=== PATIENT | male | born 1935 | race African-American/Black ===

== ENCOUNTER 2016-10-08 11:36 | Inpatient (IN) ==
[~2016-10-08 11:36] MED LIST: ASPIRIN PO STA
[2016-10-08 12:24] LABS: INR 0.88; PROTIME 9.2 Seconds (9.2-11.7); PTT 24.9 Seconds (22.0-36.0)
[2016-10-08 12:37] LABS: ALLEN TEST YES; BE 6.4 mmoll (-3.0-3.0); BLOOD TYPE ARTERIAL; DRAW SITE L RADIAL; O2(CT) 11.4 mL/dL (15.0-23.0); PO2(98.6) 150 mmHg (60-100); SAMPLE BLOOD; SAO2 98.8 % (95.0-100.0); THB 8.2 g/dL (11.5-17.4)
[2016-10-08 12:37] LABS: BASO% 0.2 % (0.0-0.8); EOS# 0.17 X1000 (0.0-0.7); HEMOGLOBIN 8.1 g/dL (14.0-18.0); IMM GRAN# 0.08 X1000 (0.0-0.04); IMM GRAN% 0.9 % (0.0-0.5); LYMPH# 1.52 X1000 (1.2-3.4); LYMPH% 17.7 % (20.5-51.1); MANUAL DIFF NEEDED? NO; MCH 28.5 PG (27-31); MCHC 28.9 g/dL (33-37); MCV 98.6 FL (81-99); MONO% 12.8 % (1.7-9.3); MPV 9.9 FL (7.4-10.4); NEUT% 66.4 % (42.2-75.2); PLT 181 X1000 (130-400); RBC 2.84 XMIL (4.7-6.1)
[2016-10-08 12:39] LABS: MODALITY CANNULA; pH(98.6) 7.13 (7.35-7.45)
[2016-10-08 12:40] LABS: PCO2(98.6) 112 mmHg (35-45)
[2016-10-08 12:46] LABS: AGAP 7; ALBUMIN 3.2 g/dL (3.5-5.0); ALKALINE PHOSPHATASE 57 U/L (32-122); BUN 50 mg/dL (8-22); CALCIUM 9.1 mg/dL (8.8-10.2); CHLORIDE 96 mmol/L (98-107); CK PROFILE 46 U/L (24-204); COSMO 288; DIRECT BILIRUBIN < 0.20 mg/dL (0.00-0.20); GOT 12 U/L (10-34); GPT 10 U/L (10-44); MAGNESIUM 2.1 mg/dL (1.5-2.7); POTASSIUM 5.4 mmol/L (3.5-5.1); SODIUM 136 mmol/L (136-145); TCO2 33 mmol/L (25-35); TOTAL BILIRUBIN 0.15 mg/dL (0.20-1.00); TOTAL PROTEIN 5.5 g/dL (6.3-8.3)
--- NOTE | 2016-10-08 12:56 | EKG Report ---
Test Performed on : 10/08/2016 11:49:15 AM Test Reason : Chest Pain Blood Pressure : / mmHG Vent. Rate : 082 BPM Atrial Rate : 082 BPM P-R Int : 140 ms QRS Dur : 086 ms QT Int : 356 ms P-R-T Axes : 146 004 -27 degrees QTc Int : 415 ms Unusual P axis, possible ectopic atrial rhythm. Indeterminate axis Possible Anterior infarct (cited on or before 29-SEP-2016) Abnormal ECG When compared with ECG of 29-SEP-2016 10:54, Ectopic atrial rhythm. has replaced Sinus rhythm. Unconfirmed Result
--- NOTE | 2016-10-08 13:05 | PROVIDER DOCUMENTATION ---
HPI-Respiratory General - General Chief Complaint: Altered Mental Status Stated Complaint: hypotension Time Seen by Provider: 10/08/16 11:45 Source: RN/, EMS Allergies/Adverse Reactions: Patient Allergies Allergy/AdvReac Type Severity Reaction Status Date / Time No Known Allergies Allergy Verified 09/29/16 11:24 Home Medications: Home Medication List Medication Instructions Recorded Confirmed Last Taken Type Aripiprazole [Abilify] 2 mg PO QHS #0 tablet 09/06/15 10/08/16 10/07/16 Rx Ascorbate Calcium [Vitamin C] 500 tab PO BID 04/13/16 10/08/16 10/07/16 History Albuterol 2.5MG/Ipratrop 0.5MG 3 ml INH RTTID #0 neb 10/06/16 10/08/16 10/07/16 Rx [Duoneb (A & A)] Amlodipine [Norvasc] 5 mg PO BID #60 tablet 10/06/16 10/08/16 10/07/16 Rx Aripiprazole [Abilify] 1 mg PO QHS #0 tablet 10/06/16 10/08/16 10/07/16 Rx Carvedilol [Coreg] 6.25 mg PO Q12HR #60 tablet 10/06/16 10/08/16 10/07/16 Rx Duloxetine [Cymbalta] 30 mg PO DAILY #0 capsule 10/06/16 10/08/16 10/07/16 Rx Ferrous Sulfate 325 mg PO BID #0 tablet 10/06/16 10/08/16 10/07/16 Rx Isosorbide Mononitrate E.r. [Imdur] 60 mg PO DAILY #30 tablet 10/06/16 10/08/16 10/07/16 Rx LISINOpril/HCTZ [Prinzide 1 each PO DAILY #0 tablet 10/06/16 10/08/16 10/07/16 Rx 20/12.5MG] Pantoprazole [Protonix] 40 mg PO DAILY@0700 #0 tablet 10/06/16 10/08/16 Rx Sucralfate [Carafate] 1 gm PO 4XDAY #0 tablet 10/06/16 10/08/16 10/07/16 Rx Trazodone [Desyrel] 150 mg PO HS PRN PRN #0 tablet 10/06/16 10/08/16 10/07/16 Rx - History of Present Illness-Resp Nature of Presenting Problem: 81 y/o M who was recently discharged from the hospital, return to ED via EMS after he was found obtunded at home. He was in severe respiratory distress and barely responsive to verbal stimulus. He is known to have a strong hx of COPD with home oxygen. Quality of Pain: reports: pressure Severity in ED: reports: severe Onset/Duration: reports: just prior to arrival Timing: reports: still present, getting worse Context: reports: other (COPD) Cough Quality/Degree: reports: moderate Episode Frequency: chronic episodes Review of Systems - Adult - REVIEW OF SYSTEMS - ADULT ROS:: ROS per family Constitutional: reports: fatique Eyes: reports: no symptoms reported Ears, Nose, Mouth & Throat: reports: no symptoms reported Cardiovascular: reports: edema, orthopnea Respiratory: reports: chronic cough, dyspnea on exertion, shortness of breath. denies: hemoptysis Gastrointestinal: reports: no symptoms reported Genitourinary: reports: no symptoms reported Musculoskeletal: reports: no symptoms reported Neurological: reports: no symptoms reported Psychiatric: reports: no symptoms reported Past History - Adult - PAST MEDICAL HISTORY-ADULT Review of Records: reports: Nursing Assessment Review, Medications Reviewed Cardiovascular: reports: CHF, HTN, hyperlipidemia Respiratory: reports: asthma, COPD, other (lung problems) Musculoskeletal: reports: arthritis Psychiatric: reports: depression, schizophrenia Endocrine/Immune: reports: Diabetes - PRIOR SURGERIES/PROCEDURES Surgical/Procedure History: reports: cholecystectomy, other (perforated gastric ulcer surgical repair this past July) - PRIOR HOSPITALIZATIONS Prior Hospitalizations: reports: for similar symptoms - IMMUNIZATION STATUS Childhood Immunizations: See Nurse Assessment Flu Vaccine: See Nurse Assessment Physical Exam-General - PHYSICAL EXAM-ADULT Initial Vital Signs Reviewed: Yes - CONSTITUTIONAL General Appearance: severe distress, obese, obtunded - EYES Eyes: PERRL/EOMI - HEAD, EARS, NOSE, MOUTH & THROAT HENMT: normocephalic/atraumatic - NECK Neck: supple - RESPIRATORY Respiratory: decreased breath sounds, accessory muscle use, rales, rhonchi, prolonged expiration - CARDIOVASCULAR Cardiovascular: tachycardia - GASTROINTESTINAL (ABDOMEN) Abdominal Exam: normal bowel sounds, soft - MUSCULOSKELETAL Extremity: no pedal edema, no calf tenderness Peripheral Pulses: dorsalis-pedis (R): 1+, dorsalis-pedis (L): 1+ DTR: knee (R): 2+, knee (L): 2+ - NEUROLOGIC Neurologic: other ( can't assess) - PSYCHIATRIC Psych/Mental Status: disoriented x 3 Progress - PLAN OF CARE/RESULTS Progress/Plan/Lab Results: Vital Signs - 24 hr 10/08/16 10/08/16 12:05 12:06 Temperature 97.3 F L Pulse Rate 82 80 Respiratory 22 21 Rate Blood Pressure 102/43 102/43 O2 Sat by Pulse 100 100 Oximetry Laboratory Tests 10/08/16 10/08/16 10/08/16 11:56 11:56 11:56 WBC 8.61 RBC 2.84 L Hgb 8.1 L Hct 28.0 L MCV 98.6 MCH 28.5 MCHC 28.9 L RDW Std Deviation 13.4 Plt Count 181 MPV 9.9 Immature Gran % (Auto) 0.9 H Neut % (Auto) 66.4 Lymph % (Auto) 17.7 L Phillips % (Auto) 12.8 H Eos % (Auto) 2.0 Baso % (Auto) 0.2 Immature Gran # (Auto) 0.08 H Neut # (Auto) 5.72 Lymph # (Auto) 1.52 Phillips # (Auto) 1.10 H Eos # (Auto) 0.17 Baso # (Auto) 0.02 PT INR PTT (Actin FS) D-Dimer 3.92 H Specimen Type Sample Site pH pCO2 pO2 HCO3 Base Excess Oxyhemoglobin ABG O2 Sat (Calculated) ABG O2 Saturation ABG Carboxyhemoglobin ABG Methemoglobin Garry Test A-a O2 Difference Total Hemoglobin Lactate Liter Flow Blood Gas Modality FiO2 % Sodium 136 Potassium 5.4 H Chloride 96 L Carbon Dioxide 33 Anion Gap 7 BUN 50 H Creatinine 5.8 H Estimated GFR/1.73 m2 11 BUN/Creatinine Ratio 9 Glucose 151 H Calculated Osmolality 288 Calcium 9.1 Magnesium 2.1 Total Bilirubin 0.15 L Direct Bilirubin < 0.20 AST 12 ALT 10 Alkaline Phosphatase 57 Creatine Kinase 46 Troponin T Mkx-C-Hniulkxsksl Pept Total Protein 5.5 L Albumin 3.2 L Globulin 2.3 Albumin/Globulin Ratio 1.4 Plasma Lactate 10/08/16 10/08/16 10/08/16 11:56 11:56 11:56 WBC RBC Hgb Hct MCV MCH MCHC RDW Std Deviation Plt Count MPV Immature Gran % (Auto) Neut % (Auto) Lymph % (Auto) Phillips % (Auto) Eos % (Auto) Baso % (Auto) Immature Gran # (Auto) Neut # (Auto) Lymph # (Auto) Phillips # (Auto) Eos # (Auto) Baso # (Auto) PT 9.2 INR 0.88 PTT (Actin FS) 24.9 D-Dimer Specimen Type Sample Site pH pCO2 pO2 HCO3 Base Excess Oxyhemoglobin ABG O2 Sat (Calculated) ABG O2 Saturation ABG Carboxyhemoglobin ABG Methemoglobin Garry Test A-a O2 Difference Total Hemoglobin Lactate Liter Flow Blood Gas Modality FiO2 % Sodium Potassium Chloride Carbon Dioxide Anion Gap BUN Creatinine Estimated GFR/1.73 m2 BUN/Creatinine Ratio Glucose Calculated Osmolality Calcium Magnesium Total Bilirubin Direct Bilirubin AST ALT Alkaline Phosphatase Creatine Kinase Troponin T 0.159 H Hbh-E-Ymokfbuovbm Pept 1136 H Total Protein Albumin Globulin Albumin/Globulin Ratio Plasma Lactate 10/08/16 10/08/16 11:56 12:28 WBC RBC Hgb Hct MCV MCH MCHC RDW Std Deviation Plt Count MPV Immature Gran % (Auto) Neut % (Auto) Lymph % (Auto) Phillips % (Auto) Eos % (Auto) Baso % (Auto) Immature Gran # (Auto) Neut # (Auto) Lymph # (Auto) Phillips # (Auto) Eos # (Auto) Baso # (Auto) PT INR PTT (Actin FS) D-Dimer Specimen Type ARTERIAL Sample Site L RADIAL pH 7.13 L* pCO2 112 H* pO2 150 H HCO3 29.9 H Base Excess 6.4 H Oxyhemoglobin 95.7 ABG O2 Sat (Calculated) 11.4 L ABG O2 Saturation 98.8 ABG Carboxyhemoglobin 1.10 ABG Methemoglobin 2.0 H Garry Test YES A-a O2 Difference -62.0 Total Hemoglobin 8.2 L Lactate 0.40 L Liter Flow 3.0 Blood Gas Modality CANNULA FiO2 % 32.0 Sodium Potassium Chloride Carbon Dioxide Anion Gap BUN Creatinine Estimated GFR/1.73 m2 BUN/Creatinine Ratio Glucose Calculated Osmolality Calcium Magnesium Total Bilirubin Direct Bilirubin AST ALT Alkaline Phosphatase Creatine Kinase Troponin T Ynp-O-Jtmdijuldfw Pept Total Protein Albumin Globulin Albumin/Globulin Ratio Plasma Lactate 0.4 L - REASSESSMENT Reassessment #1 Time Reassessed: 14:06 Status: improving Reassessment Comment: Patient responds well to BiPAP - More alert and communicative - XRAY 1 XRAY Study: Chest Impression: Abnormal XRAY Interpretation: CMG - Pericardial Effusion - CONSULTS/PCP/HOSPITALIST Notification #1 *Consult/PCP/Hospitalist*: Dr. Summers Time Discussed: 14:06 Reason/Comments: COPD exacerbation / Pericardial Effusion Consult Disposition: Admit Departure - Departure Time of Disposition Order: 14:05 DIAGNOSIS: Acute respiratory failure with hypoxia and hypercapnia, Hypotension, COPD with acute exacerbation, Acute on chronic renal failure, Respiratory acidosis Disposition: ADMITTED INPATIENT 09 Certified Medical Emergency: Emergent Condition: Critical Referrals: Juan Castañeda MD [Primary Care Provider] -
[2016-10-08] MEDS ORDERED: SOLU-MEDROL IV ONE (13:10)
[2016-10-08] MEDS ORDERED: LEVAQUIN 750 MG/D5W 150 ML IV ONE (13:10)
[2016-10-08] MEDS ORDERED: SOLU-MEDROL ONE (13:21)
--- NOTE | 2016-10-08 13:42 | Diag Imaging Result Document ---
PROCEDURE NAME: CHEST-PORTABLE - 10/08/2016 AP PORTABLE CHEST: TIME: 1230 hours FINDINGS: The cardiomediastinal silhouette is enlarged. Some of this may be due to a pericardial effusion, as it does appear considerably larger than on 09/29/2016. There may be a pleural effusion on the left. This has not changed in appearance since 09/29/2016. The right lung is better expanded than it was on the previous study and remains clear. IMPRESSION: Cardiomegaly +/- pericardial effusion. Left pleural effusion.
[2016-10-08 13:51] LABS: URINE SOURCE CATH
[2016-10-08 14:02] LABS: ALLEN TEST YES; BE 5.4 mmoll (-3.0-3.0); BLOOD TYPE ARTERIAL; DRAW SITE L RADIAL; METHB 1.7 % (0.0-1.5); O2(CT) 11.7 mL/dL (15.0-23.0); PO2(98.6) 61 mmHg (60-100); SAMPLE BLOOD; THB 8.9 g/dL (11.5-17.4)
[2016-10-08 14:06] LABS: MODALITY BI PAP; PCO2(98.6) 98 mmHg (35-45); pH(98.6) 7.17 (7.35-7.45)
[2016-10-08 14:28] LABS: BILIRUBIN URINE NEGATIVE (NEGATIVE); BLOOD URINE NEGATIVE (NEGATIVE); COLOR YELLOW; GLUCOSE URINE NEGATIVE (NEGATIVE); LEUKOCYTES URINE SMALL (NEGATIVE); NITRITE URINE NEGATIVE (NEGATIVE); PROTEIN URINE 50 mg/dL (NEGATIVE); TURBIDITY URINE TURBID (CLEAR); UROBILINOGEN URINE 2 mg/dL (NORMAL)
[2016-10-08 14:30] LABS: URINE MICRO REVIEW NEEDED? YES
[2016-10-08 14:37] LABS: UR AMPHETAMINES QUAL PRESUMPTIVE POSITIVE (NONE DETECT); UR BARBITUATES QUAL NONE DETECTED (NONE DETECT); UR BENZODIAZEPIN QUAL NONE DETECTED (NONE DETECT); UR CANNABINOIDS QUAL NONE DETECTED (NONE DETECT); UR COCAINE QUAL NONE DETECTED (NONE DETECT); UR METHADONE QUAL NONE DETECTED (NONE DETECT); UR OPIATES QUAL NONE DETECTED (NONE DETECT); UR OXYCODONE QUAL NONE DETECTED (NONE DETECT); UR PCP QUAL NONE DETECTED (NONE DETECT)
[2016-10-08 14:42] LABS: UR EPITHELIAL CELLS <10 /HPF (<10); URINE BACTERIA NEGATIVE /HPF; URINE RBC <10 /HPF (<10); URINE WBC <10 /HPF (<10)
[2016-10-08 15:29] LABS: URINE CASTS NONE SEEN; URINE CRYSTALS NONE SEEN; URINE SMALL ROUND CELLS NONE SEEN
[2016-10-08] MEDS ORDERED: LASIX IV ONE (16:05)
--- NOTE | 2016-10-08 16:57 | HISTORY AND PHYSICAL ---
CHIEF COMPLAINT: Generalized weakness and dyspnea. HISTORY OF PRESENT ILLNESS: Mr. Yoon is an 81-year-old, -[place] gentleman, who is a very poor historian and was brought into the emergency room today with a 1-day history of generalized weakness. According to patient's , the patient was not able to walk and was having some difficulty breathing because of which he was brought into the emergency room for further evaluation and care. The patient cannot give me a proper history and his is also a poor historian. PAST MEDICAL HISTORY: 1. Chronic obstructive pulmonary disease with recurrent pneumonia and recurrent hospital admissions. 2. Chronic diastolic congestive heart failure. 3. Hypertension. 4. Type 2 diabetes mellitus. 5. Chronic kidney disease. 6. Iron-deficiency anemia. 7. Peptic ulcer disease with history of GI bleeding in the past. 8. Psychosis. 9. Insomnia. SOCIAL HISTORY: The patient is and retired. He lives with his here in [place]. He denies having alcohol usage or any kind of street drugs. FAMILY HISTORY: There is family history of hypertension and heart disease. CURRENT HOME MEDICATIONS: 1. Albuterol and Atrovent nebulization treatments 3 times a day. 2. Amlodipine 5 mg twice daily. 3. Abilify 2 mg orally once daily at bedtime. 4. Vitamin C 500 mg orally twice daily. 5. Carvedilol 6.25 mg orally twice daily. 6. Duloxetine 30 mg orally once daily. 7. Ferrous sulfate 325 mg orally twice daily. 8. Imdur 60 mg orally once daily. 9. Lisinopril/hydrochlorothiazide 20 mg/12.5 mg orally once daily. 10. Pantoprazole 40 mg orally once daily in the morning. 11. Sucralfate 1 g orally 4 times a day. 12. Trazodone 150 mg orally once daily at bedtime as needed for insomnia. 13. Prednisone 20 mg orally twice daily. 14. Tradjenta 5 mg orally once daily in the morning. 15. Furosemide 40 mg orally once daily in the morning. 16. Potassium chloride 10 mEq orally once daily. REVIEW OF SYSTEMS: A full review of system could not be obtained since patient is a very poor historian. PHYSICAL EXAMINATION: VITAL SIGNS: Temperature 98 degrees, pulse 86 beats per minute, respiratory rate 20 per minute, blood pressure 118/50, pulse ox 95% on 25% oxygen. GENERAL: The patient is awake but seems to be somewhat disoriented. He also appears to be dyspneic but no other acute distress noted. HEENT: No acute abnormalities noted. NECK: Supple without any thyromegaly. LYMPHATICS: No lymphadenopathy noted in the neck region. CHEST: Chest wall is nontender. CARDIOVASCULAR: First and second heart sounds are audible without any murmurs or gallops. RESPIRATORY: Bilateral lung air entry is moderately decreased secondary to poor inspiratory effort. No rales or rhonchi present on auscultation. GASTROINTESTINAL: Abdomen appears to be somewhat distended but it is soft and nontender on palpation. Normal bowel sounds are present. MUSCULOSKELETAL: Range of motion in most of the joints somewhat limited secondary to osteoarthritis. NEUROLOGIC: No focal deficits are present. PSYCHIATRIC: The patient appears to be somewhat forgetful. GENITOURINARY: Deferred. INTEGUMENTARY: Skin is warm, dry, and without any rash. DIAGNOSTIC DATA: CBC shows hemoglobin of 8.1 and hematocrit 28.0. In comparison, his hemoglobin and hematocrit were 9.2 and 31.5 on 10/04/2016 when he was here at the hospital last week. Rest of the CBC is nondiagnostic. Chemistry shows potassium levels of 5.4, chloride 96, CO2 of 33. BUN 50, creatinine level of 5.8, and glucose level of 151. Albumin levels were found to be somewhat low at 3.2, and total proteins were found to be 5.5. Rest of the comprehensive metabolic panel is nondiagnostic. In comparison, his creatinine levels were 3.5 on 2016; that was only 2 days ago. D-dimer was found to be elevated at 3.92 and INR was within normal limits at 0.88. Magnesium levels are found to be normal at 2.1 and troponin levels were elevated at 0.159 and proBNP was also elevated at 1136. ABG obtained at the emergency room on 25 % oxygen while he was on BiPAP showed a pH of 7.17 and pCO2 of 98 and PO2 of 61. Urinalysis was nondiagnostic and the ECG obtained at the emergency room showed sinus rhythm at 82 beats per minute and poor R-wave progression. Chest x-ray showed cardiomegaly with left-sided pleural effusion. IMPRESSION: 1. Vbwig-rh-nfvdhxu respiratory failure. 2. Acute chronic obstructive pulmonary disease exacerbation. 3. Wtvdh-eo-csidtdz diastolic congestive heart failure. 4. Acute kidney awueyc-go-yjdkznm kidney disease. 5. Type 2 diabetes mellitus. 6. Anemia that appears to be multifactorial and chronic. 7. Hypertension. 8. History of peptic ulcer disease. 9. Elevated troponin. That appears to be related to his chronic kidney disease. 10. Elevated D-dimer. That appears to be nonspecific but need to rule out pulmonary thromboembolism. PLAN: The patient will be admitted to the Intensive Care Unit and will be continued on BiPAP for respiratory support. I am going to continue him on levofloxacin 500 mg IV q. 48 hours and also give him albuterol and Atrovent nebulization treatments every 4 hours. He will also receive Solu- Medrol 60 mg IV q. 8 hours, and I am going to obtain Pulmonary consultation to further assist us and taking care of his respiratory issues. Would also start him on furosemide 40 mg now and then 40 mg daily. I am going to monitor his electrolytes and obtain V/Q scan to rule out pulmonary thromboembolism. Would also obtain a venous Doppler ultrasound of lower extremities to rule out deep vein thrombosis. Would provide him VTE prophylaxis with enoxaparin 30 mg subcutaneously every 24 hours for now. He has acute kidney injury on chronic kidney disease and, therefore, we will obtain nephrology consultation with Dr. Morgan to assist us in taking care of this apparently sick person. He has diabetes, and I am going to start him on lispro insulin subcutaneously as per sliding scale and also get an anemia workup including B12/folate levels, along with iron profile and ferritin levels. Would also obtain stool for Hemoccult, and monitor his hemoglobin and hematocrit. I am going to continue most of his medicines except aripiprazole, lisinopril/ hydrochlorothiazide and trazodone along with linagliptin. He does not need an echocardiogram at this time since it was only recently done on 09/30/2016 that showed left ventricular ejection fraction estimated at 65% and mild left atrial enlargement. Grade 1 left ventricular diastolic dysfunction was also noted at that time. Further recommendations will be given as per outcome of these measures. A total of more than 45 minutes of critical care time was spent taking care of this patient today. cc: MD Juan Barrientos MD MTDD
[2016-10-08] MEDS: HUMALOG SUBQ SCH ×2 (17:52→20:47)
[2016-10-08] MEDS: LOVENOX SUBQ SCH (17:56)
[2016-10-08 18:15] LABS: URINE SOURCE CATH
[2016-10-08 18:19] LABS: BILIRUBIN URINE NEGATIVE (NEGATIVE); BLOOD URINE SMALL (NEGATIVE); COLOR YELLOW; GLUCOSE URINE NEGATIVE (NEGATIVE); LEUKOCYTES URINE TRACE (NEGATIVE); NITRITE URINE NEGATIVE (NEGATIVE); PROTEIN URINE 30 mg/dL (NEGATIVE); SP GRAVITY URINE 1.014; TURBIDITY URINE HAZY (CLEAR); UROBILINOGEN URINE NORMAL (NORMAL)
[2016-10-08] MEDS: CARAFATE PO SCH ×2 (18:20→20:47)
[2016-10-08 18:22] LABS: UR EPITHELIAL CELLS <10 /HPF (<10); URINE BACTERIA NEGATIVE /HPF; URINE CULTURE NEEDED? YES; URINE MICRO REVIEW NEEDED? YES; URINE RBC <10 /HPF (<10); URINE WBC <10 /HPF (<10)
--- NOTE | 2016-10-08 18:25 | Diag Imaging Result Document ---
PROCEDURE NAME: LUNG SCAN / VQ - 10/08/2016 VENTILATION/PERFUSION LUNG SCAN: FINDINGS: The patient was injected with 5.7 mCi of technetium-99m MAA for the perfusion portion of the study and 33.9 mCi of technetium-99m DTPA aerosol for the ventilation portion of the study. There is no evidence of ventilation perfusion mismatch. There is some inhomogeneity of the distribution of both the ventilation and perfusion tracer; however, this is worse on the ventilation scan than the perfusion scan. There are no absolute perfusion defects demonstrated. IMPRESSION: Low probability for pulmonary embolus.
[2016-10-08 18:34] LABS: CALCIUM 9.1 mg/dL (8.8-10.2)
[2016-10-08 18:34] LABS: URINE CASTS GRANULAR PRESENT
[2016-10-08] MEDS ORDERED: KAYEXALATE PO ONE (19:36)
[2016-10-08] MEDS: DUONEB (A & A) INH SCH ×2 (19:52→22:45)
--- NOTE | 2016-10-08 19:58 | CONSULTATION ---
DATE OF CONSULTATION: 10/08/2016 PULMONARY CONSULTATION REQUESTING PHYSICIAN: Reyes Cotton M.D. REASON FOR CONSULTATION: Respiratory failure. HISTORY OF PRESENT ILLNESS: Mr. [place] Yoon is an 81-year-old, white male with severe COPD and of FEV1 of less than 1 L, severe pulmonary hypertension, chronic hypoxemic respiratory failure, who is followed by this practitioner for the above problems along with a known 13 mm nodule in the right lower lobe which has slightly increased over time. The patient is not a good candidate for biopsy. The patient has had recurrent admissions to the hospital. He was recently discharged from the hospital 2 days ago with acute on chronic hypoxemic and hypercapnic respiratory failure, and acute renal insufficiency. The patient was brought back to the emergency room by EMS after patient was found unresponsive at home. Arterial blood gas in the emergency room revealed pH 7.13, pCO2 of 112, PO2 of 150. The patient also had evidence of acute decompensation in renal function with an elevation in his creatinine. The patient was placed on BiPAP. He is now in ICU. He is arousable and greets me when I enter the room. PAST MEDICAL HISTORY: 1. Severe COPD with chronic hypercapnic and hypoxemic respiratory failure. 2. Severe pulmonary hypertension with a PA pressure of approximately 80. 3. Diastolic heart failure. 4. Gastric ulcer perforation with significant GI bleed in July 2015. 5. Status post cholecystectomy. 6. Schizophrenia with several geriatric admissions. 7. Dyslipidemia. 8. Chronic renal insufficiency. SOCIAL HISTORY: He is . 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 Previous end of life discussions have been performed with her but she continues to want him to be a full code as of our last visit. He has prior tobacco use. FAMILY HISTORY: Positive for COPD and cirrhosis. REVIEW OF SYSTEMS: Notable for obtundation which has improved. He currently denies symptoms. PHYSICAL EXAMINATION: General: Reveals a obese black male, resting comfortably, in no distress. Vital Signs: BP 124/53, heart rate 94, respiration rate 27, oxygen saturation 94%. HEENT: Pupils are equal. Oropharynx evaluation is limited with endotracheal tube in place. Neck: Supple. Chest: Reveals markedly diminished breath sounds bilaterally. Cardiac Examination: Distant heart sounds with normal S1, normal S2. Abdomen: Soft without hepatosplenomegaly. Extremities: Without significant edema. LABORATORIES: White blood count 8.6, hemoglobin 8.1, platelet count 181,000. Chemistry: Sodium 137, potassium 6.0, chloride 95, BUN 53, creatinine 5.7. Arterial blood gas at 13:55 on BiPAP: pH 7.17, pCO2 of 98, PO2 of 61. IMPRESSION: An 81-year-old with end-stage COPD, severe pulmonary hypertension, who was discharged from the hospital 48 hours ago. The patient has evidence of acute on chronic hypoxemic respiratory failure and acute on chronic hypercapnic respiratory failure along with acute on chronic renal insufficiency. The patient's overall prognosis is poor. RECOMMENDATIONS: 1. Continue BiPAP until his CO2 improves. 2. Consider obtaining a BiPAP for home use if this can be arranged. 3. Gentle fluid resuscitation anticipated by Dr. Morgan. 4. Overall prognosis is poor. End of life discussions will be ongoing with his . cc: MD Juan Alas MD
[2016-10-08] MEDS: COREG PO SCH (20:47)
[2016-10-08] MEDS: VITAMIN C PO SCH (20:47)
[2016-10-08] MEDS: NORVASC PO SCH (20:47)
[2016-10-08] MEDS: FERROUS SULFATE PO SCH (20:47)
[2016-10-08] MEDS: SOLU-MEDROL IV SCH (20:48)
[2016-10-09] MEDS: DUONEB (A & A) INH SCH ×6 (02:45→22:48)
[2016-10-09] MEDS: SOLU-MEDROL IV SCH ×3 (05:00→20:50)
[2016-10-09] MEDS: PROTONIX PO SCH (06:24)
[2016-10-09] MEDS: CARAFATE PO SCH ×4 (07:00→20:50)
[2016-10-09] MEDS: HUMALOG SUBQ SCH ×4 (07:00→21:50)
[2016-10-09] MEDS: VITAMIN C PO SCH ×2 (08:33→20:50)
[2016-10-09] MEDS: LASIX IV SCH (08:33)
[2016-10-09] MEDS: NORVASC PO SCH ×2 (08:33→20:50)
[2016-10-09] MEDS: IMDUR PO SCH (08:33)
[2016-10-09] MEDS: FERROUS SULFATE PO SCH ×2 (08:33→20:50)
[2016-10-09] MEDS: COREG PO SCH ×2 (08:33→20:50)
[2016-10-09] MEDS: CYMBALTA PO SCH (08:33)
--- NOTE | 2016-10-09 14:28 | CONSULTATION ---
DATE OF CONSULTATION: 10/09/2016 REASON FOR CONSULTATION: Acute kidney injury overlying chronic kidney disease. HISTORY OF PRESENT ILLNESS: Mr. Yoon is an 81-year-old black man who has end-stage COPD. He is on hospice because of this. He also has diabetes, hypertension and chronic kidney disease. He was brought to the emergency room because of difficulty with breathing and hypercarbia. His initial evaluation found his kidney function worse than his historical baseline. He also had a pCO2 of 69 on admission. He was admitted to the hospital on this basis. This morning, he feels better. Shortness of breath is improved. He states he is hungry. PAST MEDICAL HISTORY: As above. HOME MEDICATIONS: Reviewed as listed. PHYSICAL EXAMINATION: Vital Signs: Blood pressure 157/79, heart rate 99, respirations 21, afebrile. Generally: He is an elderly man, lying at 30 degrees. Sleeping but easily arousable. Skin: Warm and dry. Conjunctivae are pink. Oropharynx is moist. Neck: Supple. Neck veins are not distended. Heart: Regular. Mildly tachycardic. Lungs: Have equal breath sounds. No crackles. Abdomen: Soft, nontender. Bowel sounds present. Extremities: Have minimal edema. No clubbing or cyanosis. IMPRESSION/PLAN: Acute kidney injury overlying chronic kidney disease. Good urine output. His labs are improving. Potassium is improved. Nothing to add. We will follow clinically. cc: MD Juan Dc MD
[2016-10-09] MEDS: LOVENOX SUBQ SCH (17:00)
[2016-10-09 17:03] LABS: MANUAL DIFF NEEDED? NO
[2016-10-09 18:01] LABS: ALLEN TEST YES; BE 8.9 mmoll (-3.0-3.0); BLOOD TYPE ARTERIAL; DRAW SITE R RADIAL; METHB 1.4 % (0.0-1.5); O2(CT) 12.3 mL/dL (15.0-23.0); PO2(98.6) 71 mmHg (60-100); SAMPLE BLOOD; SAO2 98.9 % (95.0-100.0); SRATE 10 BPM; THB 9.1 g/dL (11.5-17.4); pH(98.6) 7.33 (7.35-7.45)
[2016-10-09 18:04] LABS: MODALITY BI PAP; PCO2(98.6) 69 mmHg (35-45)
[2016-10-09 18:33] LABS: IRON SATURATION 23 %; TIBC 206 ug/dL
[2016-10-09 18:40] LABS: BASO% 0.2 % (0.0-0.8); HEMATOCRIT 27.7 % (42.0-52.0); HEMOGLOBIN 8.3 g/dL (14.0-18.0); IMM GRAN# 0.08 X1000 (0.0-0.04); IMM GRAN% 1.2 % (0.0-0.5); LYMPH# 0.86 X1000 (1.2-3.4); MCV 93.6 FL (81-99); MONO# 0.32 X1000 (0.11-0.59); MONO% 4.8 % (1.7-9.3); MPV 9.6 FL (7.4-10.4); NEUT% 80.8 % (42.2-75.2); PLT 186 X1000 (130-400); RBC 2.96 XMIL (4.7-6.1)
[2016-10-09 18:50] LABS: FERRITIN 177 ng/mL (30-400)
[2016-10-09 18:52] LABS: AGAP 12; BUN 55 mg/dL (8-22); CALCIUM 9.5 mg/dL (8.8-10.2); CHLORIDE 98 mmol/L (98-107); COSMO 301; MAGNESIUM 1.9 mg/dL (1.5-2.7); POTASSIUM 5.3 mmol/L (3.5-5.1); SODIUM 142 mmol/L (136-145); TCO2 32 mmol/L (25-35); TOTAL IRON 48 ug/dL (53-167); UNBOUND IRON 158 ug/dL (112-346)
--- NOTE | 2016-10-09 21:33 | EKG Report ---
Test Performed on : 10/08/2016 7:10:18 PM Test Reason : elevated potassium Blood Pressure : / mmHG Vent. Rate : 098 BPM Atrial Rate : 098 BPM P-R Int : 130 ms QRS Dur : 082 ms QT Int : 334 ms P-R-T Axes : 070 015 024 degrees QTc Int : 426 ms Normal sinus rhythm. Low voltage QRS Borderline ECG When compared with ECG of 08-OCT-2016 11:49, (Unconfirmed) Sinus rhythm. has replaced Ectopic atrial rhythm. Nonspecific T wave abnormality has replaced inverted T waves in Inferior leads Confirmed by Gibran Mrat MD ([id number]) on 10/10/2016 12:47:11 PM
[2016-10-09] MEDS: HALDOL IM PRN (22:00)
[2016-10-10] MEDS: DUONEB (A & A) INH SCH ×6 (03:18→22:44)
[2016-10-10] MEDS: HALDOL IM PRN (03:49)
[2016-10-10] MEDS: SOLU-MEDROL IV SCH ×3 (04:00→20:10)
[2016-10-10 04:36] LABS: ALLEN TEST YES; BLOOD TYPE ARTERIAL; DRAW SITE R RADIAL; METHB 1.2 % (0.0-1.5); O2(CT) 13.2 mL/dL (15.0-23.0); PO2(98.6) 93 mmHg (60-100); SAMPLE BLOOD; SAO2 98.8 % (95.0-100.0); THB 9.6 g/dL (11.5-17.4); pH(98.6) 7.34 (7.35-7.45)
[2016-10-10 04:37] LABS: MODALITY CANNULA; PCO2(98.6) 74 mmHg (35-45)
[2016-10-10 04:55] LABS: CALCIUM 9.6 mg/dL (8.8-10.2); POTASSIUM 5.2 mmol/L (3.5-5.1)
[2016-10-10 05:09] LABS: MANUAL DIFF NEEDED? NO
[2016-10-10 05:12] LABS: BASO% 0.1 % (0.0-0.8); HEMOGLOBIN 7.7 g/dL (14.0-18.0); IMM GRAN# 0.11 X1000 (0.0-0.04); IMM GRAN% 1.2 % (0.0-0.5); LYMPH% 8.8 % (20.5-51.1); MCH 28.3 PG (27-31); MCHC 30.8 g/dL (33-37); MCV 91.9 FL (81-99); MONO# 0.58 X1000 (0.11-0.59); MONO% 6.4 % (1.7-9.3); MPV 9.9 FL (7.4-10.4); NEUT% 83.5 % (42.2-75.2); PLT 191 X1000 (130-400); RBC 2.72 XMIL (4.7-6.1)
[2016-10-10] MEDS: CARAFATE PO SCH ×4 (06:02→20:10)
[2016-10-10] MEDS: PROTONIX PO SCH (06:02)
[2016-10-10] MEDS: HUMALOG SUBQ SCH ×4 (06:16→20:11)
[2016-10-10] MEDS: COREG PO SCH ×2 (08:59→20:10)
[2016-10-10] MEDS: VITAMIN C PO SCH ×2 (08:59→20:10)
[2016-10-10] MEDS: NORVASC PO SCH ×2 (08:59→20:10)
[2016-10-10] MEDS: LASIX IV SCH (08:59)
[2016-10-10] MEDS: FERROUS SULFATE PO SCH ×2 (08:59→20:10)
[2016-10-10] MEDS: IMDUR PO SCH (09:00)
[2016-10-10] MEDS: CYMBALTA PO SCH (09:01)
--- NOTE | 2016-10-10 09:06 | Diag Imaging Result Document ---
PROCEDURE NAME: CHEST-PORTABLE - 10/10/2016 PORTABLE CHEST: Compared with 10/08/2016. FINDINGS: There has been apparent decrease in atelectasis at the medial right base. If there was a pleural effusion present on the previous exam, then it appears to have decreased. There are no other acute changes identified. IMPRESSION: Decrease in atelectasis at medial right base. Decrease in left pleural effusion.
[2016-10-10] MEDS ORDERED: COREG PO SCH (09:49)
[2016-10-10] MEDS: LEVAQUIN 500 MG/D5W 100 ML IV SCH (13:57)
[2016-10-10] MEDS: CATAPRES PO PRN (15:30)
[2016-10-10] MEDS: LOVENOX SUBQ SCH (16:53)
[2016-10-11] MEDS: CATAPRES PO PRN (01:04)
[2016-10-11] MEDS: DUONEB (A & A) INH SCH ×6 (02:48→22:39)
[2016-10-11] MEDS: SOLU-MEDROL IV SCH ×3 (04:03→21:00)
[2016-10-11 04:19] LABS: ALLEN TEST YES; BE 12.7 mmoll (-3.0-3.0); BLOOD TYPE ARTERIAL; DRAW SITE R RADIAL; METHB 1.5 % (0.0-1.5); O2(CT) 14.7 mL/dL (15.0-23.0); PO2(98.6) 94 mmHg (60-100); SAMPLE BLOOD; SAO2 98.7 % (95.0-100.0); THB 10.8 g/dL (11.5-17.4); pH(98.6) 7.39 (7.35-7.45)
[2016-10-11 04:20] LABS: MODALITY BI PAP; PCO2(98.6) 66 mmHg (35-45)
[2016-10-11 05:59] LABS: MANUAL DIFF NEEDED? NO
[2016-10-11 06:01] LABS: BASO% 0.1 % (0.0-0.8); HEMATOCRIT 27.8 % (42.0-52.0); HEMOGLOBIN 8.8 g/dL (14.0-18.0); IMM GRAN# 0.13 X1000 (0.0-0.04); IMM GRAN% 1.5 % (0.0-0.5); LYMPH# 0.89 X1000 (1.2-3.4); MCH 28.4 PG (27-31); MCHC 31.7 g/dL (33-37); MCV 89.7 FL (81-99); MONO# 0.83 X1000 (0.11-0.59); MONO% 9.3 % (1.7-9.3); MPV 9.3 FL (7.4-10.4); NEUT% 79.1 % (42.2-75.2); PLT 230 X1000 (130-400)
[2016-10-11] MEDS: PROTONIX PO SCH (06:09)
[2016-10-11] MEDS: CARAFATE PO SCH ×4 (06:09→21:00)
[2016-10-11] MEDS: HUMALOG SUBQ SCH ×4 (06:09→21:01)
[2016-10-11 06:30] LABS: CALCIUM 9.5 mg/dL (8.8-10.2); POTASSIUM 5.1 mmol/L (3.5-5.1)
[2016-10-11] MEDS: VITAMIN C PO SCH ×2 (08:11→21:00)
[2016-10-11] MEDS: IMDUR PO SCH (08:11)
[2016-10-11] MEDS: CYMBALTA PO SCH (08:11)
[2016-10-11] MEDS: LASIX IV SCH (08:11)
[2016-10-11] MEDS: NORVASC PO SCH ×2 (08:11→21:00)
[2016-10-11] MEDS: FERROUS SULFATE PO SCH ×2 (08:11→21:00)
[2016-10-11] MEDS: COREG PO SCH ×2 (08:12→21:00)
--- NOTE | 2016-10-11 08:23 | PROGRESS NOTE ---
DATE: 10/11/2016 VITAL SIGNS: Temperature 98.9 degrees, heart rate 83, respirations 18, blood pressure 160/69, O2 saturation 100% on BiPAP with 35% FiO2. SUBJECTIVE: Patient has improved in ICU since admission on Tuesday. He is able to eat solid foods. LABORATORY DATA: Hemoglobin 8.8, hematocrit 27.8, white blood count 8900, with 79% neutrophils. Sodium 138, potassium 5.1, BUN 63, creatinine 3.7, glucose 179. PLAN: Transfer to the floor. Continue BiPAP at bedtime and p.r.n. Blood gases had improved with a PO2 of 94, pCO2 66, pH 7.39 on BiPAP. Initial pCO2 was 112 and PO2 150 on 3 L nasal oxygen. BUN and creatinine have remained about the same with initial being 56 and 3.9 respectively. cc: Juan Castañeda MD
--- NOTE | 2016-10-11 09:14 | PROGRESS NOTE ---
DATE: 10/11/2016 SUBJECTIVE: Mr. Yoon states he is feeling better today. Shortness of breath is improved. No other new symptoms.Vital signs: Blood pressure 147/73, heart rate 86, respirations 20, afebrile. Intake 1.3 L. Output 2.3 L. PHYSICAL EXAMINATION: No acute distress. Skin is warm and dry. Conjunctivae are pink. Pupils are equal. Neck veins are not distended. Heart is Regular. Lungs have equal breath sounds. No crackles. Abdomen soft, nontender. Bowel sounds present. Extremities have no edema, clubbing, or cyanosis. LABORATORY DATA: Sodium 138, potassium 5.1, chloride 93, bicarbonate 36. BUN 63, creatinine 3.7. IMPRESSION: 1. Chronic kidney disease, stage 4. He is at his historical baseline. His baseline creatinine is 1.9. He is slowly improving. 2. Acid-base. His serum bicarbonate is rising. His pH is normal, so this is likely compensatory for his chronic CO2 retention. 3. Electrolytes. Hyperkalemia, resolved. cc: MD Juan Dc MD
[2016-10-11] MEDS: LOVENOX SUBQ SCH (16:40)
[2016-10-12] MEDS: DUONEB (A & A) INH SCH ×6 (04:10→22:59)
[2016-10-12 04:42] LABS: ALLEN TEST YES; BE 14.6 mmoll (-3.0-3.0); BLOOD TYPE ARTERIAL; DRAW SITE R RADIAL; PCO2(98.6) 43 mmHg (35-45); PO2(98.6) 170 mmHg (60-100); SAMPLE BLOOD
[2016-10-12 04:44] LABS: MODALITY BI PAP; pH(98.6) 7.56 (7.35-7.45)
[2016-10-12] MEDS: SOLU-MEDROL IV SCH ×3 (06:40→21:55)
[2016-10-12] MEDS: PROTONIX PO SCH (06:40)
[2016-10-12] MEDS: CARAFATE PO SCH ×4 (06:40→21:55)
[2016-10-12] MEDS: HUMALOG SUBQ SCH ×4 (06:42→21:56)
[2016-10-12 06:47] LABS: ALBUMIN 3.3 g/dL (3.5-5.0); CALCIUM 9.6 mg/dL (8.8-10.2); POTASSIUM 4.7 mmol/L (3.5-5.1)
--- NOTE | 2016-10-12 08:51 | PROGRESS NOTE ---
DATE: 10/12/2016 VITAL SIGNS: Stable with temperature 98.6 degrees, heart rate 86, respirations 19, blood pressure 141/71, O2 saturation on nasal oxygen 98%. LABORATORY: Sodium 139, potassium 4.7. BUN 71, creatinine 3.8. Albumin 3.3. Blood gases: pH 7.56, pCO2 of 43, PO2 of 170 on BiPAP with 35% FiO2, inspiratory 16, expiatory 5.0. Patient is alert and oriented. Chest is fairly clear. With worsening BUN and creatinine, Lasix has been discontinued and he is restarted on some IV fluids, normal saline at 125 mL/hour. ABGs and BMP will be rechecked tomorrow. cc: Juan Castañeda MD
[2016-10-12] MEDS: FERROUS SULFATE PO SCH ×2 (09:25→21:55)
[2016-10-12] MEDS: VITAMIN C PO SCH ×2 (09:25→21:55)
[2016-10-12] MEDS: COREG PO SCH ×2 (09:25→21:55)
[2016-10-12] MEDS: CYMBALTA PO SCH (09:25)
[2016-10-12] MEDS: NORVASC PO SCH ×2 (09:25→21:55)
[2016-10-12] MEDS: IMDUR PO SCH (09:25)
[2016-10-12] MEDS: NS 1,000 ML IV SCH ×2 (09:26→18:36)
[2016-10-12] MEDS: LEVAQUIN 500 MG/D5W 100 ML IV SCH (14:02)
--- NOTE | 2016-10-12 14:39 | PROGRESS NOTE ---
DATE: 10/12/2016 TIME SEEN: 0755. SUBJECTIVE: Mr. Yoon is sitting up on the side of the bed. He is eating his breakfast. He has no complaints. Denies chest pain or increased work of breathing. OBJECTIVE: His most recent vital signs are temperature 98.3, blood pressure 136 /64, heart rate 77, respirations 20. He is on 3 L nasal cannula. His last recorded saturation is 97-100%. He has had 540 in, 1650 out per Mcintyre catheter. LABS: Sodium 139, potassium 4.7, chloride 92, CO2 of 37, BUN 71, creatinine 3.8 , glucose 167, his anion gap is 10. Calcium 9.6, phosphorus 3.3, albumin 3.3. Previous hemoglobin is 8.8 on the 3rd. ABGs this a.m., pH 7.56, CO2 of 43, PO2 of 170. Patient was on BiPAP yesterday evening, during sleep, taken off early this a.m. with ABGs at 35%. PHYSICAL EXAM: General: This is an 81-year-old, male. He is currently resting in bed. He is in no acute distress. Skin: Warm and dry. HEENT: Normocephalic, atraumatic. Conjunctiva is pink. He has ANDIE. Mucous membranes moist. Neck: Supple. Trachea midline. No JVD. Cardiovascular: Regular rate and rhythm. He is without murmur or gallop. Lungs: Clear to auscultation anteriorly. Equal excursion on room air. Abdomen: Round, soft, nontender. Positive bowel sounds. Genitourinary: Not inspected. Mcintyre catheter is in place. Adequate urine out. Extremities: Have trace pretibial edema. No clubbing or cyanosis. Neurological: Alert and oriented x2. ASSESSMENT AND PLAN: 1. Chronic kidney disease stage 4. Patient is in acute kidney injury. His baseline creatinine is 1.8. He has had continued improvement slowly over the last several days to his creatinine. BUN continues to improve. No indications for intervention with adequate urine out. We will continue to monitor. Not a dialysis candidate. rg 2. Electrolytes and acid-base balance. These are stable. 3. Anemia. This remains low, but stable. 4. Respiratory distress. Patient continues on BiPAP during the night. This is followed by primary care. I would like to thank you for allowing us to follow with this patient. Seen, data reviewed, discussed with Dom Conway on 10/12/16. I agree with the above assessment and plan of care. rg Dictated by FLAVIO Ramos for Dorian Morgan MD cc: FLAVIO Ramos MD Robert Allen, MD [facility]
--- NOTE | 2016-10-12 14:56 | ECHO REPORT ---
ORDER DATE: 10/09/2016 INTERPRETING PHYSICIAN: Dr. Hogue REQUESTING PHYSICIAN: CLINICAL INDICATIONS: This is an 81-year-old male with questionable pericardial effusion. This study is somewhat limited due to poor acoustic windows. M-MODE MEASUREMENTS: Right ventricle: cm. Left ventricle end diastole: cm. Left ventricle end systole: cm. Posterior wall: cm. Interventricular septum: cm. Left atrium: cm. Aortic root: cm. SUMMARY OF 2-DIMENSIONAL IMAGIN. There is no pericardial effusion. 2. The left ventricular function appears to be normal. Ejection fraction is visually estimated to be in the neighborhood of 60% to 65%. I do not see any definite evidence of wall motion abnormality. 3. Left ventricular hypertrophy cannot be entirely excluded because the parasternal windows were really limited, and the apical windows were also difficult to really assess the thickness of the left ventricular wall; however, a mild degree may be present. 4. The left atrium is probably at the upper limits of normal. 5. The right ventricle also appears to be mildly enlarged. 6. The mitral valve appears to be grossly normal. 7. The pulse wave Doppler of mitral inflow shows reversal of the E and the A wave. 8. Tissue Doppler of septal and lateral mitral annulus was not done in this case. Diastolic dysfunction cannot be entirely excluded. 9. Epicardial fat pad is present. 10.The pulmonary pressure is somewhere in the order of 50 to 55 mmHg. 11.The aortic valve appears to be grossly normal. 12.The pulmonic valve also appears to be grossly within normal range. CONCLUSIONS: 1. Technically very difficult. 2. No evidence of pericardial effusion. 3. Normal left ventricular systolic function. 4. Mild to moderate pulmonary hypertension, estimated to be somewhere in the range of 50 to 55 mmHg. Clinical correlation is recommended. cc: MD Isaac Chaney MD Robert Allen, MD
[2016-10-12] MEDS: LOVENOX SUBQ SCH (16:43)
[2016-10-13] MEDS: DUONEB (A & A) INH SCH ×6 (03:00→23:00)
[2016-10-13 03:28] LABS: ALLEN TEST YES; BE 9.6 mmoll (-3.0-3.0); BLOOD TYPE ARTERIAL; DRAW SITE R RADIAL; METHB 1.3 % (0.0-1.5); O2(CT) 17.4 mL/dL (15.0-23.0); PO2(98.6) 107 mmHg (60-100); SAMPLE BLOOD; SAO2 97.8 % (95.0-100.0); THB 12.9 g/dL (11.5-17.4); pH(98.6) 7.32 (7.35-7.45)
[2016-10-13 04:10] LABS: MODALITY BI PAP; PCO2(98.6) 75 mmHg (35-45)
[2016-10-13] MEDS: SOLU-MEDROL IV SCH (06:08)
[2016-10-13] MEDS: CARAFATE PO SCH ×4 (06:08→20:59)
[2016-10-13] MEDS: NS 1,000 ML IV SCH (06:08)
[2016-10-13] MEDS: PROTONIX PO SCH (06:08)
[2016-10-13] MEDS: HUMALOG SUBQ SCH ×4 (06:08→21:01)
[2016-10-13 07:53] LABS: ALBUMIN 3.1 g/dL (3.5-5.0); CALCIUM 8.9 mg/dL (8.8-10.2); POTASSIUM 4.7 mmol/L (3.5-5.1)
--- NOTE | 2016-10-13 08:15 | PROGRESS NOTE ---
DATE: 10/13/2016 VITAL SIGNS: Temperature 99.4 degrees, heart rate 87, respirations 16, blood pressure 141/71, O2 saturation on nasal oxygen over 100%. LABORATORY: BMP pending. Blood gases with pH 7.32, pCO2 75, PO2 107 on BiPAP 35% FiO2 with inspiratory pressure 16 and expiratory 5. ASSESSMENT: He is feeling fairly well this morning and rested well last night. He denies significant shortness of breath. PLAN: Change IV steroids to p.o. Continue to observe today and consider discharge late this evening or tomorrow. cc: Juan Castañeda MD
--- NOTE | 2016-10-13 08:32 | PROGRESS NOTE ---
DATE: 10/13/2016 SUBJECTIVE: He has no complaints today. Shortness of breath is at his baseline from his perspective. OBJECTIVE: Blood pressure 163/80, heart rate 92, respiration 21, afebrile. Intake 2.7 L. Output 1.3 L. N PHYSICAL EXAMINATION: No acute distress. Skin is warm and dry. Conjunctivae are pink. Neck veins are not appreciated. Heart is regular and distant. Lungs have equal breath sounds. No crackles or wheezes. Abdomen is soft, nontender. Bowel sounds are present. Extremities have no edema, clubbing, or cyanosis. LABORATORY DATA: Sodium 138, potassium 4.7, chloride 96, bicarbonate 34. BUN 72, creatinine 3.2. IMPRESSION: 1. Acute kidney injury overlying chronic kidney disease. 2. Baseline creatinine approximately 2. His creatinine has continued to improve since he has been in the hospital and has been under treatment for his chronic obstructive pulmonary disease. From my perspective, it is okay for him to be discharged home. I will stop his IV fluids today. I have no medical changes. We will arrange for outpatient followup if you desire this. cc: MD Juan Dc MD
[2016-10-13] MEDS: COREG PO SCH ×2 (09:01→20:59)
[2016-10-13] MEDS: CYMBALTA PO SCH (09:01)
[2016-10-13] MEDS: IMDUR PO SCH (09:01)
[2016-10-13] MEDS: VITAMIN C PO SCH ×2 (09:02→20:59)
[2016-10-13] MEDS: NORVASC PO SCH ×2 (09:02→20:59)
[2016-10-13] MEDS: FERROUS SULFATE PO SCH ×2 (09:02→20:59)
[2016-10-13] MEDS: PREDNISONE PO SCH ×2 (09:10→20:59)
[2016-10-13] MEDS: LOVENOX SUBQ SCH (16:04)
[2016-10-14] MEDS: HALDOL IM PRN (00:26)
[2016-10-14] MEDS: DUONEB (A & A) INH SCH ×2 (03:25→08:22)
[2016-10-14] MEDS: HUMALOG SUBQ SCH (06:18)
[2016-10-14] MEDS: CARAFATE PO SCH (06:18)
[2016-10-14] MEDS: PROTONIX PO SCH (06:18)
[2016-10-14 07:47] LABS: ALBUMIN 3.2 g/dL (3.5-5.0); CALCIUM 8.9 mg/dL (8.8-10.2); POTASSIUM 4.3 mmol/L (3.5-5.1)
[2016-10-14 07:50] VITALS: BP 148/66
[2016-10-14] MEDS: VITAMIN C PO SCH (09:27)
[2016-10-14] MEDS: CYMBALTA PO SCH (09:27)
[2016-10-14] MEDS: FERROUS SULFATE PO SCH (09:27)
[2016-10-14] MEDS: PREDNISONE PO SCH (09:27)
[2016-10-14] MEDS: COREG PO SCH (09:27)
[2016-10-14] MEDS: NORVASC PO SCH (09:28)
[2016-10-14] MEDS: IMDUR PO SCH (09:28)
--- NOTE | 2016-10-14 09:45 | DISCHARGE SUMMARY ---
ADMISSION DATE: 10/08/2016 DISCHARGE DATE: 10/14/2016 FINAL DIAGNOSES: 1. End-stage chronic obstructive pulmonary disease. 2. Hypercapnia. 3. Hypertension. 4. Acute renal failure. 5. Chronic renal disease stage III. 6. Chronic psychosis. 7. Insomnia. DISCHARGE MEDICATIONS: Usual medication at home include: 1. BiPAP with 16 inspiratory pressure, 5 expiratory, and 35% FiO2. 2. Albuterol and Atrovent nebulizer t.i.d. 3. Prednisone 20 mg b.i.d. (20). 4. Imdur 60 mg once daily. 5. Lisinopril/hydrochloride 20/12.5 one daily. 6. Pantoprazole once daily. 7. Carafate 1 gram four times a day. 8. Trazodone 150 mg at bedtime p.r.n. 9. Tradjenta 5 mg daily. HISTORY: This is one of several [facility] admissions for this 81-year-old black man with end- stage COPD and chronic renal disease, who presented to the emergency room with acute respiratory and renal failure. Initial blood gases revealed pH 7.17, pCO2 of 98, PO2 of 61 on BiPAP. BUN was 50, creatinine 5.8. There was elevated D-dimer. V/Q scan was done and revealed low probability of pulmonary emboli. There was cardiomegaly and mild pericardial effusion and left pleural effusion. It had not changed significantly since 09/29/2016. HOSPITAL COURSE: There was slow improvement with intermittent BiPAP and intravenous steroids. This morning, BUN is [address] Cunha and Dr. Morgan were consulted. Dr. Morgan feels that it is okay for him to go home at this time. He has been feeling better and less short of breath for 2 or 3 days. He is discharged home on the above medications, to be seen back in the office in 1 week for followup. cc: Juan Castañeda MD
--- NOTE | 2016-10-14 14:37 | PROGRESS NOTE ---
DATE: 10/14/2016 TIME SEEN: 0850. SUBJECTIVE: Mr. Yoon is resting quietly in bed. He is sitting up on the side of the bed. He has just finished eating his breakfast. He denies any pain. No increased work of breathing. OBJECTIVE: Vital signs: His most recent vital signs, temperature 98.8 degrees , blood pressure 148/66, heart rate 67, respirations 19. He is on 3 L nasal cannula. His last recorded saturation is 100%. He has had 480 in. He has had 2825 out per Mcintyre catheter. LABS: Show sodium 141, potassium 4.3, chloride 97, CO2 35, BUN 65, creatinine 2.9, glucose 135, anion gap 9, calcium 8.9, phosphorus 2.9, albumin 3.2. Previous hemoglobin 8.8 on the 3rd. PHYSICAL EXAMINATION: General: This is an 81-year-old male. He is currently resting in bed. He has no acute distress. Skin: Warm and dry. HEENT: Normocephalic, atraumatic. Conjunctivae pink. He has ANDIE. Mucous membranes moist. Neck: Supple. Trachea midline. No JVD. Cardiovascular: He is regular rate and rhythm. He is without murmur or gallop. Lungs: Clear to auscultation anteriorly. Equal excursion. He is currently on room air. Abdomen: Round, soft, nontender. Positive bowel sounds. Genitourinary: Mcintyre catheter is in place. His nurse is preparing to remove it at this time to allow the patient to get up and attempt to void. Not inspected. Extremities: Have trace pretibial edema. No clubbing or cyanosis. Neurological: Alert and oriented x3. ASSESSMENT AND PLAN: 1. Acute kidney injury. Patient's creatinine has continued to slowly improve. He is down to 2.9 at this time. No indications for any intervention. He is to follow up in our office within 2- 3 weeks after discharge. 2. Electrolytes. Acid-base balance. These are in target. 3. Anemia. This remains low but stable. Acute respiratory failure with hypotension. This continues to do well. Patient has improved. Adequate urine out. I would like to thank you for allowing us to follow with this patient. Data reviewed, discussed with Dom Conway on 10/14/16. I agree with the above assessment and plan of care. rg Dictated by FLAVIO Ramos for Dorian Morgan MD cc: FLAVIO Ramos MD Robert Allen, MD [facility]
--- NOTE | 2016-10-14 22:43 | Extremity Venous Study ---
PROCEDURE NAME: Venous U/S Bilateral Legs - 10/09/2016 REFERRING PHYSICIAN: Reyes Cotton MD READING PHYSICIAN: Bryson Hilliard MD INDICATION: Elevated D-dimer and shortness of breath and a history of bilateral deep venous thromboses in 2016. FINDINGS: The deep and superficial veins of both lower extremities were imaged throughout their course. All are compressible with forward flow. No thrombus is appreciated. INTERPRETATION: No evidence of deep or superficial venous thrombosis in either lower extremity. The previous thrombosis involving the right popliteal and peroneal veins and the left peroneal veins has resolved. cc: MD Reyes Fitch MD Robert Allen, MD
== END 2016-10-14 11:45 | disposition home or self-care (01) ==
LOC: ED 11:36 → EDBD 11:36 → EDSEX 11:36 → ICU 16:15 → 3N 10-11 13:25
PROVIDERS: ADMIT Family Medicine; ATTEND Family Medicine

== ENCOUNTER 2017-01-01 07:14 | Inpatient (IN) ==
[2017-01-01] MEDS ORDERED: AMIDATE ONE (07:16)
[2017-01-01] MEDS ORDERED: QUELICIN ONE (07:17)
[2017-01-01] MEDS ORDERED: QUELICIN IV ONE (07:20)
[2017-01-01] MEDS ORDERED: AMIDATE IV ONE (07:20)
[2017-01-01 07:23] LABS: ALLEN TEST YES; BE 13.4 mmoll (-3.0-3.0); BLOOD TYPE ARTERIAL; DRAW SITE R RADIAL; METHB 0.7 % (0.0-1.5); PCO2(98.6) 129 mmHg (35-45); PO2(98.6) 233 mmHg (60-100); SAMPLE BLOOD; SAO2 99.9 % (95.0-100.0); THB 8.3 g/dL (11.5-17.4); pH(98.6) 7.15 (7.35-7.45)
[2017-01-01] MEDS ORDERED: DIPRIVAN 1% 3,000 MG/300 ML BOTTLE ONE (07:23)
[2017-01-01 07:24] LABS: MODALITY NRB
[2017-01-01] MEDS ORDERED: DIPRIVAN 1% IV ONE (07:25)
[2017-01-01] MEDS ORDERED: VERSED IV ONE (07:25)
[2017-01-01] MEDS: DIPRIVAN 1% 1,000 MG/100 ML BOTTLE IV SCH ×8 (07:27→22:27)
[2017-01-01] MEDS ORDERED: ATIVAN ONE (07:40)
[2017-01-01] MEDS ORDERED: VERSED ONE (07:40)
--- NOTE | 2017-01-01 07:52 | PROVIDER DOCUMENTATION ---
HPI-Cardiac General - General Stated Complaint: syncopal/unresponsive Time Seen by Provider: 01/01/17 07:47 Source: EMS Unable to obtain history due to:: urgency Allergies/Adverse Reactions: Patient Allergies Allergy/AdvReac Type Severity Reaction Status Date / Time No Known Allergies Allergy Verified 09/29/16 11:24 Home Medications: Home Medication List Medication Instructions Recorded Confirmed Last Taken Type Ascorbate Calcium [Vitamin C] 500 tab PO BID 04/13/16 10/08/16 12/31/16 20:00 History Amlodipine [Norvasc] 5 mg PO BID #60 tablet 10/06/16 10/08/16 12/31/16 20:00 Rx Carvedilol [Coreg] 6.25 mg PO Q12HR #60 tablet 10/06/16 10/08/16 12/31/16 20:00 Rx Duloxetine [Cymbalta] 30 mg PO DAILY #0 capsule 10/06/16 10/08/16 12/31/16 08: 00 Rx Ferrous Sulfate 325 mg PO BID #0 tablet 10/06/16 10/08/16 12/31/16 20:00 Rx Isosorbide Mononitrate E.r. [Imdur] 60 mg PO DAILY #30 tablet 10/06/16 10/08/16 12/31/16 08:00 Rx LISINOpril/HCTZ [Prinzide 1 each PO DAILY #0 tablet 10/06/16 10/08/16 12/31/16 09:00 Rx 20/12.5MG] Pantoprazole [Protonix] 40 mg PO DAILY@0700 #0 tablet 10/06/16 10/08/16 07:00 Rx Alprazolam 0.5 mg PO Q8HR PRN 01/01/17 01/01/17 Unknown History Aripiprazole [Abilify] 2.5 mg PO QHS 01/01/17 01/01/17 12/31/16 20:00 History Furosemide 40 mg PO DAILY 01/01/17 01/01/17 12/31/16 08:00 History Linagliptin [Tradjenta] 5 mg PO DAILY 01/01/17 01/01/17 12/31/16 08:00 History Potassium Chloride [Klor-Con 10] 10 meq PO DAILY 01/01/17 01/01/1717 08: 00 History Trazodone [Desyrel] 150 mg PO HS PRN 01/01/17 01/01/17 12/31/16 20:00 History Vitamin B Complex 1 each PO DAILY 01/01/17 01/01/17 12/31/16 08:00 History - History of Present Illness-Cardiac Nature of Presenting Problem: Syncopal episode this morning. Family states that they got up to put CPAP on the patient, and the patient slumped over and became completely unresponsive. Upon . Patient upon arrival, is completely apneic and diaphoretic. Patient intubated by emergency physician. Location: denies: substernal Severity in ED: severe Onset/Duration: just prior to arrival Timing: still present Context/Activities at Onset: reports: light activity Modifying Factors: improves with: immobilization Palpitation Quality: N/A Aspirin Treatment Today: denies: no aspirin today Prior Chest Pain/Cardiac Workup: denies: no prior chest pain Associated Symptoms: denies: denies symptoms Similar Symptoms Previously?: Yes Recently Seen Here or By Another Healthcare Provider: Yes Review of Systems - Adult - REVIEW OF SYSTEMS - ADULT ROS:: unobtainable per condition Constitutional: reports: see HPI Past History - Adult - PAST MEDICAL HISTORY-ADULT Review of Records: reports: Old Records Reviewed, Nursing Assessment Review, Medications Reviewed, Social history reviewed & non-contributory. Cardiovascular: reports: CHF, HTN, hyperlipidemia Respiratory: reports: asthma, COPD, other (lung problems) Musculoskeletal: reports: arthritis Psychiatric: reports: depression, schizophrenia Endocrine/Immune: reports: Diabetes - PRIOR SURGERIES/PROCEDURES Surgical/Procedure History: reports: cholecystectomy, other (perforated gastric ulcer surgical repair this past July) - PRIOR HOSPITALIZATIONS Prior Hospitalizations: reports: for similar symptoms - IMMUNIZATION STATUS Childhood Immunizations: See Nurse Assessment Flu Vaccine: See Nurse Assessment Physical Exam-General - PHYSICAL EXAM-ADULT Initial Vital Signs Reviewed: Yes - CONSTITUTIONAL General Appearance: severe distress, lethargic - EYES Eyes: PERRL/EOMI - HEAD, EARS, NOSE, MOUTH & THROAT HENMT: normocephalic/atraumatic, moist mucous membranes - NECK Neck: non-tender - RESPIRATORY Respiratory: chest non-tender, decreased breath sounds, accessory muscle use, prolonged expiration - CARDIOVASCULAR Cardiovascular: tachycardia, irregularly irregular - GASTROINTESTINAL (ABDOMEN) Abdominal Exam: normal bowel sounds, non tender. negative: rebound - LYMPHATIC Lymphatic: no adenopathy - MUSCULOSKELETAL Back Exam: normal inspection, no CVA tenderness Extremity: slow capillary refill - SKIN Integumentary: diaphoresis - NEUROLOGIC Neurologic: other (patient obtunded and unresponsive) - PSYCHIATRIC Psych/Mental Status: disoriented x 3 Progress - PLAN OF CARE/RESULTS Progress/Plan/Lab Results: Vital Signs - 8 hr 01/01/17 08:36 01/01/17 08:56 Temperature 96.8 F L Pulse Rate 72 73 Respiratory Rate 17 15 Blood Pressure 138/60 93/67 O2 Sat by Pulse Oximetry 100 100 Laboratory Results - last 24 hr 01/01/17 01/01/17 01/01/17 07:00 07:00 07:00 WBC 10.39 RBC 2.87 L Hgb 8.3 L Hct 29.8 L MCV 103.8 H MCH 28.9 MCHC 27.9 L RDW Std Deviation 15.3 H Plt Count 202 MPV 9.5 Neut % (Auto) 57.8 Lymph % (Auto) 29.2 Terrell % (Auto) 11.4 H Eos % (Auto) 1.4 Baso % (Auto) 0.2 Neut # (Auto) 6.01 Lymph # (Auto) 3.03 Terrell # (Auto) 1.18 H Eos # (Auto) 0.15 Baso # (Auto) 0.02 PT INR PTT (Actin FS) Specimen Type Sample Site pH pCO2 pO2 HCO3 Base Excess Oxyhemoglobin ABG O2 Sat (Calculated) ABG O2 Saturation ABG Carboxyhemoglobin ABG Methemoglobin Garry Test A-a O2 Difference Total Hemoglobin Lactate Blood Gas Modality FiO2 % Sodium 146 H Potassium 5.0 Chloride 100 Carbon Dioxide 38 H Anion Gap 8 BUN 36 H Creatinine 3.0 H Estimated GFR/1.73 m2 24 BUN/Creatinine Ratio 12 Glucose 149 H Calculated Osmolality 302 Calcium 9.2 Magnesium 2.2 Total Bilirubin 0.24 AST 32 ALT 23 Alkaline Phosphatase 50 Creatine Kinase 69 Troponin T [id number]-Pqkmutybcuc Pept 1600 H Total Protein 6.2 L Albumin 3.8 Globulin 2.4 Albumin/Globulin Ratio 1.6 Urine Source Urine Color Urine Turbidity Urine pH Ur Specific Bethel Urine Protein Ur Glucose (Stick) Ur Ketones (Stick) Urine Blood Urine Nitrite Urine Bilirubin Urobilinogen Dipstick Urine Leukocytes Urine WBC (Auto) Urine RBC (Auto) U Epithel Cells (Auto) Urine Bacteria (Auto) 01/01/17 01/01/17 01/01/17 07:00 07:00 07:13 WBC RBC Hgb Hct MCV MCH MCHC RDW Std Deviation Plt Count MPV Neut % (Auto) Lymph % (Auto) Terrell % (Auto) Eos % (Auto) Baso % (Auto) Neut # (Auto) Lymph # (Auto) Terrell # (Auto) Eos # (Auto) Baso # (Auto) PT 10.0 INR 0.96 PTT (Actin FS) 23.1 Specimen Type ARTERIAL Sample Site R RADIAL pH 7.15 L* pCO2 129 H* pO2 233 H HCO3 35.4 H Base Excess 13.4 H Oxyhemoglobin 97.4 ABG O2 Sat (Calculated) 12.0 L ABG O2 Saturation 99.9 ABG Carboxyhemoglobin 1.80 ABG Methemoglobin 0.7 Garry Test YES A-a O2 Difference 319.0 Total Hemoglobin 8.3 L Lactate 0.50 Blood Gas Modality NRB FiO2 % 100.0 Sodium Potassium Chloride Carbon Dioxide Anion Gap BUN Creatinine Estimated GFR/1.73 m2 BUN/Creatinine Ratio Glucose Calculated Osmolality Calcium Magnesium Total Bilirubin AST ALT Alkaline Phosphatase Creatine Kinase Troponin T 0.066 Qrl-[id number]-Dcpnjuvxixv Pept Total Protein Albumin Globulin Albumin/Globulin Ratio Urine Source Urine Color Urine Turbidity Urine pH Ur Specific [place] Urine Protein Ur Glucose (Stick) Ur Ketones (Stick) Urine Blood Urine Nitrite Urine Bilirubin Urobilinogen Dipstick Urine Leukocytes Urine WBC (Auto) Urine RBC (Auto) U Epithel Cells (Auto) Urine Bacteria (Auto) 01/01/17 09:04 WBC RBC Hgb Hct MCV MCH MCHC RDW Std Deviation Plt Count MPV Neut % (Auto) Lymph % (Auto) Terrell % (Auto) Eos % (Auto) Baso % (Auto) Neut # (Auto) Lymph # (Auto) Terrell # (Auto) Eos # (Auto) Baso # (Auto) PT INR PTT (Actin FS) Specimen Type Sample Site pH pCO2 pO2 HCO3 Base Excess Oxyhemoglobin ABG O2 Sat (Calculated) ABG O2 Saturation ABG Carboxyhemoglobin ABG Methemoglobin Garry Test A-a O2 Difference Total Hemoglobin Lactate Blood Gas Modality FiO2 % Sodium Potassium Chloride Carbon Dioxide Anion Gap BUN Creatinine Estimated GFR/1.73 m2 BUN/Creatinine Ratio Glucose Calculated Osmolality Calcium Magnesium Total Bilirubin AST ALT Alkaline Phosphatase Creatine Kinase Troponin T Xyz-[id number]-Pgzlaiqhtyu Pept Total Protein Albumin Globulin Albumin/Globulin Ratio Urine Source CATH Urine Color YELLOW Urine Turbidity HAZY Urine pH 5.0 Ur Specific [place] 1.012 Urine Protein NEGATIVE Ur Glucose (Stick) NEGATIVE Ur Ketones (Stick) NEGATIVE Urine Blood NEGATIVE Urine Nitrite NEGATIVE Urine Bilirubin NEGATIVE Urobilinogen Dipstick NORMAL Urine Leukocytes NEGATIVE Urine WBC (Auto) <10 Urine RBC (Auto) <10 U Epithel Cells (Auto) <10 Urine Bacteria (Auto) NEGATIVE Orders Category Date Time Status Cardiac Monitoring DIRECTED Care 01/01/17 07:30 Active Saline Loc NOW Care 01/01/17 07:30 Active CHEST-PORTABLE [RAD] Stat Exams 01/01/17 07:25 Completed HEAD/C-SPINE W/O CONTRAST [CT] Stat Exams 01/01/17 08:49 Completed ABG [RESP] Routine Lab 01/01/17 07:13 Completed ABG [RESP] Routine Lab 01/01/17 09:57 Ordered CBC WITH ELECTRONIC DIFF [HEME] Stat Lab 01/01/17 07:00 Completed CK PROFILE [SP CHEM] Stat Lab 01/01/17 07:00 Completed COMPREHENSIVE METABOLIC PANEL [CHEM] Stat Lab 01/01/17 07:00 Completed MAGNESIUM [CHEM] Stat Lab 01/01/17 07:00 Completed PRO B-NATRIURETIC PEPTIDE Stat Lab 01/01/17 07:00 Completed PROTIME WITH INR [COAG] Stat Lab 01/01/17 07:00 Completed PTT [COAG] Stat Lab 01/01/17 07:00 Completed TROPONIN T Stat Lab 01/01/17 07:00 Completed UA NIMS W/REFLEX CULT [URINALYSIS] Stat Lab 01/01/17 09:04 Completed 0.9% Sodium Chloride Inj [Ns] 1,000 ml Med 01/01/17 09:55 Active IV 999 mls/hr CefTRIAXONE 1 GM/NS [Rocephin 1 gm/Ns] Med 01/01/17 09:57 Active 1 gm in 50 ml IV NOW Etomidate [Amidate] Med 01/01/17 07:16 Discontinued 40 mg .ROUTE .STK-MED ONE Etomidate [Amidate] Med 01/01/17 07:20 Discontinued 40 mg IV NOW ONE Furosemide [Lasix] Med 01/01/17 10:09 Discontinued 80 mg IV NOW ONE Furosemide [Lasix] Med 01/01/17 09:56 Discontinued 80 mg PO NOW ONE Lorazepam [Ativan] Med 01/01/17 07:40 Discontinued 2 mg .ROUTE .STK-MED ONE Lorazepam [Ativan] Med 01/01/17 09:02 Discontinued 2 mg IV NOW ONE Midazolam [Versed] Med 01/01/17 07:25 Discontinued 4 mg IV NOW ONE Midazolam [Versed] Med 01/01/17 07:40 Discontinued 5 mg .ROUTE .STK-MED ONE Propofol [Diprivan 1%] Med 01/01/17 07:25 Discontinued 10 mg IV STAT ONE Propofol [Diprivan 1%] Med 01/01/17 07:23 Discontinued 1,000 mg in 100 ml .ROUTE As Directed Propofol [Diprivan 1%] Med 01/01/17 07:25 Active 1,000 mg in 100 ml IV As Directed Succinylcholine [Quelicin] Med 01/01/17 07:20 Discontinued 100 mg IV NOW ONE Succinylcholine [Quelicin] Med 01/01/17 07:17 Discontinued 200 mg .ROUTE .STK-MED ONE Vecuronium [Norcuron] Med 01/01/17 08:11 Discontinued 10 mg .ROUTE .STK-MED ONE Vecuronium [Norcuron] Med 01/01/17 08:20 Discontinued 10 mg IV NOW ONE Water, Sterile Inj [Sterile Water Inj] Med 01/01/17 08:12 Discontinued 10 ml .ROUTE .STK-MED ONE EKG [EKG] Stat Ther 01/01/17 07:30 Ordered Result Diagrams: 01/01/17 07:00 01/01/17 07:00 - REASSESSMENT Reassessment #1 Status: unchanged Reassessment Comment: admit. case discusse with Dr. Castañeda Departure - Departure Date of Disposition Decision: 01/01/17 Time of Disposition Decision: 10:08 DIAGNOSIS: Respiratory failure, Acute on chronic renal failure Disposition: ADMITTED INPATIENT 09 Certified Medical Emergency: Emergent Condition: Stable Referrals and Follow-Ups: Juan Castañeda MD [Primary Care Provider] - - Critical Care Note This patient required my direct & personal management of CC.: Yes Total Time (mins): 120 Critical Care Statement: This patient required my direct personal management to treat or rule out processes, the absence of which, could potentiallly result in sudden, clinically significant life or limb threatening deterioration. Comments: Admit to icu. case discussed with Dr. Castañeda Attestation - Physician/ LADARIUS Attestation The physician spent face to face time with patient:: Yes Advanced Practice Provider documentation review:: The physician spent face to face time with this patient and agrees with all MLP documentation, treatment, and medical decision making by the MLP. See provider notes for further information.
[2017-01-01] MEDS ORDERED: NORCURON ONE (08:11)
[2017-01-01] MEDS ORDERED: STERILE WATER INJ. ONE (08:12)
[2017-01-01] MEDS ORDERED: NORCURON IV ONE (08:20)
[2017-01-01 08:22] LABS: ALBUMIN 3.8 g/dL (3.5-5.0); CALCIUM 9.2 mg/dL (8.8-10.2); MAGNESIUM 2.2 mg/dL (1.5-2.7); TOTAL BILIRUBIN 0.24 mg/dL (0.20-1.00); TOTAL PROTEIN 6.2 g/dL (6.3-8.3)
--- NOTE | 2017-01-01 08:24 | Diag Imaging Result Doc PS360 ---
CHEST-PORTABLE - 01/01/2017 INDICATION: et tube placement TECHNIQUE: COMPARISON: 10/10/2016 FINDINGS: There is a new endotracheal tube in good position at T4-T5. There is cardiomegaly and pulmonary vascular congestion very similar to prior exams. Stable nodule or granuloma in the right midlung. Slight worsening retrocardiac consolidation or atelectasis. IMPRESSION: Good endotracheal tube placement. Electronically signed by Saji Escobar 01/01/2017 8:22 AM
[2017-01-01 08:40] LABS: BASO% 0.2 % (0.0-0.8); EOS# 0.15 X1000 (0.0-0.7); EOS% 1.4 % (0.0-10.0); HEMATOCRIT 29.8 % (42.0-52.0); HEMOGLOBIN 8.3 g/dL (14.0-18.0); INR 0.96; LYMPH# 3.03 X1000 (1.2-3.4); LYMPH% 29.2 % (20.5-51.1); MANUAL DIFF NEEDED? NO; MCH 28.9 PG (27-31); MCHC 27.9 g/dL (33-37); MCV 103.8 FL (81-99); MONO# 1.18 X1000 (0.11-0.59); MONO% 11.4 % (1.7-9.3); MPV 9.5 FL (7.4-10.4); NEUT% 57.8 % (42.2-75.2); PLT 202 X1000 (130-400); PTT 23.1 Seconds (22.0-36.0); RBC 2.87 XMIL (4.7-6.1)
[2017-01-01] MEDS ORDERED: ATIVAN IV ONE (09:02)
[2017-01-01 09:09] LABS: URINE CULTURE NEEDED? NO; URINE MICRO REVIEW NEEDED? NO; URINE SOURCE CATH
[2017-01-01 09:35] LABS: BILIRUBIN URINE NEGATIVE (NEGATIVE); BLOOD URINE NEGATIVE (NEGATIVE); COLOR YELLOW; GLUCOSE URINE NEGATIVE (NEGATIVE); LEUKOCYTES URINE NEGATIVE (NEGATIVE); NITRITE URINE NEGATIVE (NEGATIVE); PROTEIN URINE NEGATIVE (NEGATIVE); SP GRAVITY URINE 1.012; TURBIDITY URINE HAZY (CLEAR); UROBILINOGEN URINE NORMAL (NORMAL)
[2017-01-01 09:37] LABS: UR EPITHELIAL CELLS <10 /HPF (<10); URINE BACTERIA NEGATIVE /HPF; URINE RBC <10 /HPF (<10); URINE WBC <10 /HPF (<10)
--- NOTE | 2017-01-01 09:48 | Diag Imaging Result Doc PS360 ---
HEAD/C-SPINE W/O CONTRAST - 01/01/2017 INDICATION: unresponsive TECHNIQUE: A CT dose reduction protocol was used. COMPARISON: 09/29/2016 FINDINGS: Head CT: There is stable mild cerebral white matter hypodensity compatible with chronic microvascular disease. No intracranial mass or hemorrhage. The skull is intact. There is some ethmoid and frontal sinusitis. There is also significant fluid in the nasal passages. Cervical spine: There is an endotracheal tube present. Alignment is anatomic. There is advanced disc degeneration at C3-4 and C6-7. There is mild multilevel facet degeneration. IMPRESSION: 1. Stable mild chronic microvascular ischemic changes of the brain but no acute disease. 2. Cervical spondylosis but no acute disease. Electronically signed by Saji Escobar 01/01/2017 9:46 AM
[2017-01-01] MEDS ORDERED: NS 1,000 ML IV ONE (09:55)
[2017-01-01] MEDS ORDERED: LASIX PO ONE (09:56)
[2017-01-01] MEDS ORDERED: ROCEPHIN 1 GM/NS 1 GM/50 ML IVPB IV ONE (09:57)
[2017-01-01] MEDS ORDERED: LASIX IV ONE (10:09)
[2017-01-01 10:17] LABS: ALLEN TEST YES; BE 14.8 mmoll (-3.0-3.0); BLOOD TYPE ARTERIAL; DRAW SITE R RADIAL; METHB 0.7 % (0.0-1.5); O2(CT) 10.2 mL/dL (15.0-23.0); PO2(98.6) 228 mmHg (60-100); SAMPLE BLOOD; SAO2 100.8 % (95.0-100.0); SRATE 16 BPM; TVOL 550 mL; pH(98.6) 7.45 (7.35-7.45)
[2017-01-01 10:21] LABS: MODALITY VENTILATOR; PCO2(98.6) 58 mmHg (35-45)
--- NOTE | 2017-01-01 12:28 | HISTORY AND PHYSICAL ---
CHIEF COMPLAINT: Respiratory failure. HISTORY OF PRESENT ILLNESS: This is one of several [facility] admissions for this 81-year-old white man with end-stage COPD and congestive heart failure who is under hospice care. He has progressively become weaker and more short of breath over the past week. The , Yvonne, called hospice early this morning at 1:00 stating that he was more short of breath. The hospice nurse came at about 1:30 and helped correct the CPAP machine. He seemed to do a little better until about 3:00 a.m. when he tried to get up. He had pulled his oxygen off and slumped to the floor. There was decrease in responsiveness and gasping of breath. She called the ambulance who arrived and brought him to the Emergency Room. He was evaluated by Dr. Tinsley and found to have congestive heart failure with pulmonary edema. He was given intravenous Lasix and placed on a ventilator. The wishes to continue resuscitative measures at this point. He was admitted to the ICU. He was placed on propofol for sedation. PAST MEDICAL HISTORY: Last admission was 10/08/2016 to 10/14/2016 with the diagnoses of end-stage chronic obstructive pulmonary disease, hypercapnia, hypertension, acute renal failure, chronic renal disease stage 3, chronic psychosis, and insomnia. Discharge medications included BiPAP with 16 mm inspiratory and 5 mm expiratory, 35% FiO2, albuterol and Atrovent nebulizer t.i.d., prednisone 20 mg b.i.d., Imdur 60 mg daily, lisinopril/HCT 20 mg/12.5 mg one daily, pantoprazole once daily, Carafate 1 gram q.i.d., trazodone 150 mg at bedtime p.r.n., and Tradjenta 5 mg daily for sugar. He was followed by Dr. Cunha and Dr. Morgan during that hospitalization. He has been seen in the office a couple of times since discharge and doing fairly well. ALLERGIES: None known. REVIEW OF SYSTEMS: Significant for congestive heart failure and end-stage COPD for several years. He has used a Trilogy machine and oxygen for several years. Admissions to the hospital have increased in frequency over the past 2 years. He has had psychiatric problems and has seen psychiatrists for several years and is presently on Abilify. SOCIAL HISTORY: He lives with his . There is no history of recent smoking or alcohol usage. PHYSICAL EXAMINATION: VITAL SIGNS: Temperature is 98, heart rate 94, respirations 16, heart rate 88, O2 saturation on the ventilator 100%. GENERAL: The patient is sedate on the ventilator. HEENT: Pupils are small and poorly reactive. HEART: Regular in rate and rhythm with no murmur or gallop. LUNGS: Bilateral rhonchi and rales. ABDOMEN: Soft with no mass, tenderness, or organomegaly. EXTREMITIES: Trace ankle edema. RECTAL/GENITALIA: Deferred. IMPRESSION: 1. Acute respiratory failure. 2. Congestive heart failure, acute systolic. 3. End-stage chronic obstructive pulmonary disease. 4. Coronary artery disease. 5. Hypertension. PLAN: Admit to the ICU on the ventilator. cc: Juan Castañeda MD
[2017-01-01 13:36] LABS: ALLEN TEST YES; BE 15.3 mmoll (-3.0-3.0); BLOOD TYPE ARTERIAL; DRAW SITE R RADIAL; METHB 0.6 % (0.0-1.5); O2(CT) 10.4 mL/dL (15.0-23.0); PCO2(98.6) 50 mmHg (35-45); PO2(98.6) 127 mmHg (60-100); SAMPLE BLOOD; SAO2 99.2 % (95.0-100.0); SRATE 16 BPM; THB 7.4 g/dL (11.5-17.4); TVOL 550 mL; pH(98.6) 7.51 (7.35-7.45)
[2017-01-01 13:37] LABS: MODALITY VENTILATOR
[2017-01-01] MEDS ORDERED: SODIUM CHLORIDE 0.9% INJ SCH (15:15)
[2017-01-01] MEDS: NEXIUM IV SCH (15:33)
--- NOTE | 2017-01-01 15:40 | CONSULTATION ---
DATE OF CONSULTATION: 01/01/2017 REQUESTING PHYSICIAN: Dr. Castañeda. REASON FOR CONSULTATION: Respiratory failure. HISTORY OF PRESENT ILLNESS: Mr. Yoon is an 81-year-old white male with severe COPD, severe pulmonary hypertension, chronic hypoxemic and chronic hypercapnic respiratory failure who has been followed by this practitioner. The patient also has a pulmonary nodule in the right lower lobe which has slowly increased over time but patient has been deemed not a candidate for biopsy. The patient has had several episodes of acute hypoxemic and acute hypercapnic respiratory failure. Typically following an episode where he will refuse to wear his BiPAP machine for which he is dependent. Patient frequently will go to sleep at which time, his will apply the BiPAP. There was difficulty with the BiPAP this morning and patient fell and became unresponsive and was brought to the emergency room. PCO2 was significantly elevated. The patient was intubated and initiated on mechanical ventilation. PAST MEDICAL HISTORY: 1. Severe COPD with chronic hypoxemic and chronic hypercapnic respiratory failure. 2. Severe pulmonary hypertension with cor pulmonale. 3. Diastolic heart failure. 4. Gastric ulcer perforation with GI bleed in July 2015. 5. Status post cholecystectomy. 6. Schizophrenia. 7. Dementia. 8. Dyslipidemia. 9. Chronic renal insufficiency. SOCIAL HISTORY: Remote tobacco use. He has an attentive . FAMILY HISTORY: Positive for cirrhosis and COPD. REVIEW OF SYSTEMS: Cannot be obtained. PHYSICAL EXAMINATION: General: Reveals an elderly black male, who currently is on propofol for sedation and on mechanical ventilation. Vital signs: Blood pressure 115/57. Heart rate 74, respiration rate 10, oxygen saturation 100%. HEENT: Pupils are equal and reactive. Oropharynx evaluation is limited. Neck: Supple. Chest: Reveals markedly diminished breath sounds bilaterally. Cardiac Exam: Distant heart sounds. Normal S1, normal S2. Abdomen: Soft and without hepatosplenomegaly. Extremities: Reveal trace edema. LABORATORIES: Arterial blood gas reveals on presentation to the emergency room pH 7.15, pCO2 of 129, PO2 of 233. Most recent arterial blood gas on mechanical ventilation pH 7.51, pCO2 of 50, PO2 of 127. Chest x-ray reveals cardiomegaly with pulmonary vascular congestion, retrocardiac atelectasis, nodule in the right midlung zone. CT scan of the brain reveals no acute changes. IMPRESSION: An 81-year-old with severe COPD, cor pulmonale, with recurrent right heart failure, diastolic dysfunction, with acute on chronic hypoxemic respiratory failure and acute on chronic hypercapnic respiratory failure which is recurrent. Patient's prognosis is poor. End of life discussions have occurred with this family earlier this year and family wants to pursue continued aggressive treatment. RECOMMENDATIONS: 1. Continue full ventilatory support. 2. Gentle diuresis as tolerated. 3. Will likely initiate weaning in 48-72 hours. 4. Overall prognosis is poor. cc: MD Juan Alas MD
[2017-01-01] MEDS: DUONEB (A & A) INH SCH ×3 (15:55→22:55)
[2017-01-01] MEDS: LASIX IV SCH (21:45)
[2017-01-02] MEDS: DIPRIVAN 1% 1,000 MG/100 ML BOTTLE IV SCH ×13 (00:38→23:13)
[2017-01-02] MEDS: DUONEB (A & A) INH SCH ×6 (03:15→23:20)
[2017-01-02 04:38] LABS: ALLEN TEST YES; BE 17.8 mmoll (-3.0-3.0); BLOOD TYPE ARTERIAL; DRAW SITE R RADIAL; METHB 0.9 % (0.0-1.5); O2(CT) 11.7 mL/dL (15.0-23.0); PO2(98.6) 71 mmHg (60-100); SAMPLE BLOOD; SAO2 97.2 % (95.0-100.0); SRATE 8 BPM; THB 8.7 g/dL (11.5-17.4); TVOL 500 mL; pH(98.6) 7.37 (7.35-7.45)
[2017-01-02 04:40] LABS: PCO2(98.6) 79 mmHg (35-45)
[2017-01-02 04:41] LABS: MODALITY VENTILATOR
[2017-01-02 04:45] LABS: BASO% 0.2 % (0.0-0.8); EOS# 0.19 X1000 (0.0-0.7); EOS% 1.9 % (0.0-10.0); HEMATOCRIT 25.2 % (42.0-52.0); HEMOGLOBIN 7.2 g/dL (14.0-18.0); IMM GRAN# 0.03 X1000 (0.0-0.04); IMM GRAN% 0.3 % (0.0-0.5); LYMPH# 1.51 X1000 (1.2-3.4); LYMPH% 15.3 % (20.5-51.1); MANUAL DIFF NEEDED? YES; MCH 28.1 PG (27-31); MCHC 28.6 g/dL (33-37); MCV 98.4 FL (81-99); MONO% 9.1 % (1.7-9.3); NEUT% 73.2 % (42.2-75.2); PLT 204 X1000 (130-400); RBC 2.56 XMIL (4.7-6.1)
[2017-01-02 05:06] LABS: CALCIUM 8.9 mg/dL (8.8-10.2); POTASSIUM 4.3 mmol/L (3.5-5.1)
[2017-01-02 05:12] LABS: BANDS 2 % (0-1); EOS 2 % (1-10); LYMPHS 14 % (21-51); MONO 2 % (1-9)
[2017-01-02 05:13] LABS: HYPOCHROM 1+
--- NOTE | 2017-01-02 08:27 | PROGRESS NOTE ---
DATE: 01/02/2017 VITAL SIGNS: Temperature 98.6 degrees, heart rate 95, respirations 8 per ventilator, blood pressure 117/48, O2 saturation 96% with 50% FiO2 per ventilator. LABORATORY: Hemoglobin 7.2, hematocrit 25.2, white blood count 9800. Sodium 144, potassium 4.3, BUN 34, creatinine 2.7, glucose 94. Magnesium 1.9. ASSESSMENT: Patient is presently on maximum Diprivan. Chest is fairly clear. Blood gases revealed pH 7.37, pCO2 79, PO2 71, on a rate of 8, FiO2 50, and tidal volume 500. PLAN: Ventilator settings are adjusted to rate of 12 and tidal volume 550. Lab and chest x-ray were ordered for tomorrow. He will be transfused 2 units of packed red blood cells. Taper of ventilator will be considered tomorrow. cc: Juan Castañeda MD
--- NOTE | 2017-01-02 08:49 | Diag Imaging Result Doc PS360 ---
CHEST-PORTABLE - 01/02/2017 INDICATION: CHF TECHNIQUE: COMPARISON: 01/01/2017 FINDINGS: Stable endotracheal tube in good position. Lung volumes are much lower. There is worsening bibasilar atelectasis as a result. Stable retrocardiac consolidation and/or effusion. Stable cardiomegaly and pulmonary vascular congestion. IMPRESSION: Lower lung volumes but otherwise no significant change from prior. Electronically signed by Saji Escobar 01/02/2017 8:47 AM
[2017-01-02] MEDS ORDERED: ATIVAN IV PRN (09:23)
--- NOTE | 2017-01-02 09:35 | Diag Imaging Result Doc PS360 ---
CHEST/ABD TUBE PLACEMENT - 01/02/2017 at 0925 INDICATION: NG placement TECHNIQUE: COMPARISON: 0535 FINDINGS: There is a nasogastric tube in good position with the tip in the stomach. IMPRESSION: Nasogastric tube in the stomach. Electronically signed by Saji Escobar 01/02/2017 9:32 AM
[2017-01-02] MEDS: LASIX IV SCH ×2 (10:09→21:12)
[2017-01-02] MEDS ORDERED: NS 500 ML ONE (10:42)
[2017-01-02] MEDS: NEXIUM IV SCH (15:06)
[2017-01-03] MEDS: DIPRIVAN 1% 1,000 MG/100 ML BOTTLE IV SCH ×4 (01:05→07:15)
[2017-01-03] MEDS: DUONEB (A & A) INH SCH ×6 (03:30→22:55)
[2017-01-03 04:20] LABS: ALLEN TEST YES; BE 21.7 mmoll (-3.0-3.0); BLOOD TYPE ARTERIAL; DRAW SITE R RADIAL; METHB 0.8 % (0.0-1.5); O2(CT) 12.4 mL/dL (15.0-23.0); PO2(98.6) 73 mmHg (60-100); SAMPLE BLOOD; SAO2 97.5 % (95.0-100.0); SRATE 8 BPM; THB 9.2 g/dL (11.5-17.4); TVOL 500 mL; pH(98.6) 7.43 (7.35-7.45)
[2017-01-03 04:21] LABS: MODALITY VENTILATOR; PCO2(98.6) 74 mmHg (35-45)
[2017-01-03 04:42] LABS: MANUAL DIFF NEEDED? NO
[2017-01-03 04:45] LABS: BASO% 0.2 % (0.0-0.8); EOS# 0.17 X1000 (0.0-0.7); EOS% 1.6 % (0.0-10.0); HEMATOCRIT 30.3 % (42.0-52.0); IMM GRAN# 0.02 X1000 (0.0-0.04); IMM GRAN% 0.2 % (0.0-0.5); LYMPH# 1.64 X1000 (1.2-3.4); LYMPH% 15.5 % (20.5-51.1); MCH 28.2 PG (27-31); MCHC 29.7 g/dL (33-37); MONO# 1.35 X1000 (0.11-0.59); MONO% 12.8 % (1.7-9.3); MPV 9.4 FL (7.4-10.4); NEUT% 69.7 % (42.2-75.2); PLT 184 X1000 (130-400); RBC 3.19 XMIL (4.7-6.1)
[2017-01-03 05:28] LABS: CALCIUM 8.8 mg/dL (8.8-10.2); POTASSIUM 3.8 mmol/L (3.5-5.1)
--- NOTE | 2017-01-03 06:13 | EKG Report ---
Test Performed on : 01/01/2017 07:07:46 AM Test Reason : CP/Re-Ordered Blood Pressure : / mmHG Vent. Rate : 107 BPM Atrial Rate : 104 BPM P-R Int : 114 ms QRS Dur : 084 ms QT Int : 348 ms P-R-T Axes : 062 037 022 degrees QTc Int : 464 ms Undetermined rhythm Low voltage QRS Cannot rule out Anterior infarct , age undetermined Abnormal ECG No previous ECGs available Unconfirmed Result
--- NOTE | 2017-01-03 07:17 | Diag Imaging Result Doc PS360 ---
EXAM: CHEST-PORTABLE HISTORY: CHF TECHNIQUE: Erect AP portable chest at 0530 COMMENT: Endotracheal tube tip is slightly below the thoracic inlet. There is atelectasis versus pneumonia in the left lower lobe and to a lesser extent in the right lower lobe and middle lobe. There has been worsening with respect to the bibasilar opacities since 01/02/2017. IMPRESSION: Worsening atelectasis versus pneumonia particularly in the left lower lobe. Electronically signed by Shai Houston 01/03/2017 7:15 AM
[2017-01-03] MEDS ORDERED: PROTONIX IV SCH (08:00)
[2017-01-03] MEDS ORDERED: SODIUM CHLORIDE 0.9% INJ SCH (08:00)
--- NOTE | 2017-01-03 08:38 | PROGRESS NOTE ---
DATE: 01/03/2017 VITAL SIGNS: Stable with temperature 98.7 degrees, heart rate 89, respirations 10, blood pressure 141/68, O2 saturation 96% on 50% FiO2. LABORATORY: Blood gases revealed pH to be 7.43, pCO2 74, PO2 73, on rate of 8, FiO2 50, tidal volume 500, PEEP 5. CBC reveals hemoglobin to be 9, hematocrit 30.3, white blood count 10,600 with 70% neutrophils. Sodium 145, potassium 3.8, BUN 30, creatinine 2.6, glucose 105. Chest x- ray with worsening atelectasis versus pneumonia, particularly in the left lower lobe. IMPRESSION: Patient is sedated on Diprivan. Lungs are fairly clear. Abdomen is soft. An NG was placed yesterday. There has been no blood or coffee-grounds material. PLAN: Rocephin is added, Diprivan is discontinued, and attempts will be made to wean slowly from the ventilator. His home O2 prior to admission was 3 L nasal. cc: Juan Castañeda MD
[2017-01-03] MEDS: ROCEPHIN 1 GM/NS 1 GM/50 ML IVPB IV SCH (08:50)
[2017-01-03 10:21] LABS: ALLEN TEST YES; BE 22.5 mmoll (-3.0-3.0); BLOOD TYPE ARTERIAL; DRAW SITE R RADIAL; METHB 1.2 % (0.0-1.5); O2(CT) 12.6 mL/dL (15.0-23.0); PO2(98.6) 61 mmHg (60-100); SAMPLE BLOOD; SAO2 94.4 % (95.0-100.0); THB 9.8 g/dL (11.5-17.4); pH(98.6) 7.41 (7.35-7.45)
[2017-01-03 10:23] LABS: MODALITY VENTILATOR
[2017-01-03 10:24] LABS: PCO2(98.6) 80 mmHg (35-45)
[2017-01-03] MEDS: LASIX IV SCH ×2 (10:32→22:07)
[2017-01-03] MEDS: NEXIUM IV SCH (14:56)
[2017-01-04] MEDS: DUONEB (A & A) INH SCH ×6 (03:30→22:45)
[2017-01-04 06:21] LABS: CALCIUM 8.7 mg/dL (8.8-10.2); POTASSIUM 3.8 mmol/L (3.5-5.1)
--- NOTE | 2017-01-04 07:18 | Diag Imaging Result Doc PS360 ---
CHEST-PORTABLE - 01/04/2017 INDICATION: pneumonia TECHNIQUE: COMPARISON: 01/03/2017 FINDINGS: The endotracheal tube has been removed. There is significant worsening opacity of the left lung base with volume loss here and mediastinal shift. Aeration of the right lung is actually improved, with improved clearance of some hazy infiltrate or atelectasis at the base. IMPRESSION: Significant collapse at the left lung base, new from prior. Mucous plugging of airways is suspected. Electronically signed by Saji Escobar 01/04/2017 7:16 AM
[2017-01-04] MEDS: ROCEPHIN 1 GM/NS 1 GM/50 ML IVPB IV SCH (07:50)
--- NOTE | 2017-01-04 09:27 | PROGRESS NOTE ---
DATE: 01/04/2017 VITAL SIGNS: Temperature 97.4 degrees, heart rate 101, respirations 16, blood pressure 103/46. O2 saturation 98% on nonrebreather mask, 100% FiO2. DIAGNOSTIC DATA: Blood gases on CPAP at 40%, pH 7.41, pCO2 80, PO2 61. Laboratory: Sodium 150, potassium 3.8, BUN 32, creatinine 2.6, calcium 8.7. ASSESSMENT: Patient is arousable with some speech. Chest reveals decrease in breath sounds at the left base. Chest x-ray shows atelectasis of the left base with possible mucus plugging. Right base is clearing. PLAN: Elevate the head of the bed and give sips of clear liquids p.o. cc: Juan Castañeda MD
[2017-01-04] MEDS: LASIX IV SCH (10:43)
[2017-01-04] MEDS: NEXIUM IV SCH (15:00)
[2017-01-04] MEDS: NS 1,000 ML IV SCH (18:10)
[2017-01-04] MEDS: MUCOMYST 20% INH SCH (19:01)
[2017-01-04] MEDS ORDERED: NS 500 ML IV ONE (21:27)
[2017-01-05] MEDS: DUONEB (A & A) INH SCH ×6 (03:09→22:33)
--- NOTE | 2017-01-05 06:19 | Diag Imaging Result Doc PS360 ---
EXAM: CHEST-PORTABLE HISTORY: pneumonia TECHNIQUE: Portable AP COMPARISON: 01/04/2017 FINDINGS: The heart is borderline mildly prominent. Pulmonary edema remains. Infiltrates in the left lung are less pronounced. Left lung is better aerated on the current exam. Interval decrease in the size of the left pleural effusion. IMPRESSION: Overall interval improvement. Electronically signed by Flynn Amaya 01/05/2017 6:16 AM
[2017-01-05] MEDS: NS 1,000 ML IV SCH (06:25)
[2017-01-05 06:36] LABS: CALCIUM 8.2 mg/dL (8.8-10.2); POTASSIUM 4.4 mmol/L (3.5-5.1)
[2017-01-05] MEDS: ROCEPHIN 1 GM/NS 1 GM/50 ML IVPB IV SCH (07:36)
[2017-01-05] MEDS: MUCOMYST 20% INH SCH ×2 (08:23→18:52)
--- NOTE | 2017-01-05 08:55 | PROGRESS NOTE ---
DATE: 01/05/2017 VITAL SIGNS: Temperature 99 degrees, heart rate 95, respirations 17, blood pressure 115/50, O2 saturation on BiPAP with 80% FiO2 99%. LABORATORY: Sodium 148, potassium 4.4, BUN 42, creatinine 3.3, glucose 98, calcium 8.2. Chest x- ray: Overall improvement with persistent pulmonary edema but infiltrates in the left lung less pronounced. There was an interval decrease in size of left pleural effusion. SUBJECTIVE: Patient is lethargic and not arousable this morning. 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 He took some p.o. liquids yesterday. I O 1710/725. Urine output is decreased at about 15 mL/h. PLAN: Recheck ABGs. Increase IV fluids. Consider transfer to the floor when he is more alert. cc: Juan Castañeda MD
[2017-01-05 10:13] LABS: ALLEN TEST YES; BE 15.8 mmoll (-3.0-3.0); BLOOD TYPE ARTERIAL; DRAW SITE R RADIAL; O2(CT) 12.7 mL/dL (15.0-23.0); PO2(98.6) 90 mmHg (60-100); SAMPLE BLOOD; SAO2 98.6 % (95.0-100.0); SRATE 16 BPM; THB 9.3 g/dL (11.5-17.4); pH(98.6) 7.22 (7.35-7.45)
[2017-01-05 10:14] LABS: MODALITY BI PAP; PCO2(98.6) 114 mmHg (35-45)
[2017-01-05] MEDS: D5 1/2 NS 1,000 ML IV SCH ×2 (10:21→18:20)
[2017-01-05] MEDS: NEXIUM IV SCH (14:22)
[2017-01-05 14:33] LABS: ALLEN TEST YES; BE 17.1 mmoll (-3.0-3.0); BLOOD TYPE ARTERIAL; DRAW SITE R RADIAL; METHB 1.3 % (0.0-1.5); O2(CT) 12.8 mL/dL (15.0-23.0); PO2(98.6) 78 mmHg (60-100); SAMPLE BLOOD; SAO2 98.6 % (95.0-100.0); SRATE 16 BPM; THB 9.5 g/dL (11.5-17.4)
[2017-01-05 14:35] LABS: MODALITY BI PAP; PCO2(98.6) 95 mmHg (35-45)
[2017-01-05] MEDS ORDERED: ATIVAN IV PRN (23:19)
[2017-01-06] MEDS: D5 1/2 NS 1,000 ML IV SCH ×5 (02:06→19:53)
[2017-01-06] MEDS: DUONEB (A & A) INH SCH ×6 (03:27→23:01)
[2017-01-06 04:23] LABS: ALLEN TEST YES; BE 10.6 mmoll (-3.0-3.0); BLOOD TYPE ARTERIAL; DRAW SITE R RADIAL; METHB 0.7 % (0.0-1.5); O2(CT) 16.8 mL/dL (15.0-23.0); PO2(98.6) 82 mmHg (60-100); SAMPLE BLOOD; SAO2 97.4 % (95.0-100.0); THB 12.6 g/dL (11.5-17.4)
[2017-01-06 04:25] LABS: MODALITY BI PAP; PCO2(98.6) 142 mmHg (35-45); pH(98.6) 7.11 (7.35-7.45)
[2017-01-06 04:35] LABS: BASO% 0.1 % (0.0-0.8); EOS# 0.08 X1000 (0.0-0.7); EOS% 0.7 % (0.0-10.0); HEMOGLOBIN 9.3 g/dL (14.0-18.0); LYMPH# 0.49 X1000 (1.2-3.4); LYMPH% 4.4 % (20.5-51.1); MANUAL DIFF NEEDED? NO; MCH 28.1 PG (27-31); MCHC 27.4 g/dL (33-37); MCV 102.7 FL (81-99); MONO# 1.25 X1000 (0.11-0.59); MONO% 11.2 % (1.7-9.3); MPV 9.7 FL (7.4-10.4); NEUT% 83.6 % (42.2-75.2); PLT 155 X1000 (130-400); RBC 3.31 XMIL (4.7-6.1)
[2017-01-06 04:51] LABS: CALCIUM 8.2 mg/dL (8.8-10.2); POTASSIUM 4.3 mmol/L (3.5-5.1)
[2017-01-06] MEDS ORDERED: LASIX IV ONE (05:04)
[2017-01-06 07:06] LABS: ALLEN TEST YES; BE 11.7 mmoll (-3.0-3.0); BLOOD TYPE ARTERIAL; DRAW SITE R RADIAL; METHB 0.9 % (0.0-1.5); O2(CT) 13.6 mL/dL (15.0-23.0); PO2(98.6) 128 mmHg (60-100); SAMPLE BLOOD; SAO2 99.7 % (95.0-100.0); THB 9.8 g/dL (11.5-17.4)
[2017-01-06 07:07] LABS: pH(98.6) 7.17 (7.35-7.45)
[2017-01-06 07:08] LABS: MODALITY BI PAP; PCO2(98.6) 119 mmHg (35-45)
--- NOTE | 2017-01-06 07:22 | Diag Imaging Result Doc PS360 ---
CHEST-PORTABLE - 01/06/2017 INDICATION: abnormal exam TECHNIQUE: COMPARISON: 01/05/2017 FINDINGS: There is new, essentially complete collapse of the left lung with shift of the mediastinum to the left. The right lung remains normal. Stable cardiomegaly and pulmonary vascular congestion. IMPRESSION: Complete collapse of the left lung. Mucous plugging of the airway is suspected. Electronically signed by Saji Escobar 01/06/2017 7:20 AM
[2017-01-06] MEDS: ROCEPHIN 1 GM/NS 1 GM/50 ML IVPB IV SCH (07:41)
[2017-01-06] MEDS: MUCOMYST 20% INH SCH ×2 (08:14→19:23)
--- NOTE | 2017-01-06 09:09 | Diag Imaging Result Doc PS360 ---
CHEST-PORTABLE - 01/06/2017 at 0900 INDICATION: ET tube placement TECHNIQUE: COMPARISON: 0525 FINDINGS: There is a new endotracheal tube in good position at T4. There is some improvement in the complete opacity of the left upper lobe, with some aeration at this point. There is also improvement in the volume loss of the left lung generally. There is probably left pleural effusion. Stable cardiomegaly and pulmonary vascular congestion. IMPRESSION: Good endotracheal tube placement. Improving aeration of the left upper lobe. Electronically signed by Saji Escobar 01/06/2017 9:07 AM
--- NOTE | 2017-01-06 09:12 | PROGRESS NOTE ---
DATE: 01/06/2017 VITAL SIGNS: Temperature 99.3 degrees, heart rate 105, respirations 35, blood pressure 108/50, O2 saturation on 90% FiO2, BiPAP 94%. SUBJECTIVE: Chest x-ray shows complete collapse of the left lung, possibly due to the mucus plugging. Anesthesia was called and intubation will be performed. Blood gases on BiPAP revealed pH to be 7.17, pCO2 119, PO2 128 on 100% FiO2. Hemoglobin 9.3, hematocrit 34.0, white blood count 11,200. Sodium 143, potassium 4.3, BUN 48, creatinine 3.7, glucose 179, calcium 8.2. The patient is less responsive. He required Ativan last night because of agitation. Respirations are more shallow. PLAN: Intubate as above and continue supportive care. cc: Juan Castañeda MD
[2017-01-06 09:25] LABS: INR 0.94; PROTIME 9.8 Seconds (9.2-11.7)
[2017-01-06] MEDS ORDERED: NS 0 ML ONE (13:58)
[2017-01-06] MEDS: MORPHINE IV PRN ×2 (15:23→19:49)
[2017-01-06] MEDS: NEXIUM IV SCH (15:23)
[2017-01-06] MEDS ORDERED: TYLENOL PR PRN (15:58)
[2017-01-06] MEDS ORDERED: D5 1/2 NS 500 ML IV ONE (16:30)
[2017-01-06] MEDS ORDERED: D5 1/2 NS 500 ML IV SCH ×2 (22:28→23:53)
[2017-01-06] MEDS ORDERED: NARCAN IV ONE (23:52)
[2017-01-07] MEDS: DIPRIVAN 1% 1,000 MG/100 ML BOTTLE IV SCH ×3 (00:06→07:31)
[2017-01-07] MEDS ORDERED: NEO-SYNEPHRINE 50 MG in NS 250 ML IV SCH (02:20)
[2017-01-07] MEDS: NEO-SYNEPHRINE 50 MG in NS 250 ML IV SCH ×2 (02:37→11:14)
[2017-01-07] MEDS: DUONEB (A & A) INH SCH ×6 (03:09→23:19)
[2017-01-07 04:43] LABS: ALLEN TEST YES; BE 14.8 mmoll (-3.0-3.0); BLOOD TYPE ARTERIAL; DRAW SITE R RADIAL; METHB 0.6 % (0.0-1.5); PO2(98.6) 92 mmHg (60-100); SAMPLE BLOOD; SAO2 99.2 % (95.0-100.0); SRATE 10 BPM; THB 3.5 g/dL (11.5-17.4); TVOL 500 mL; pH(98.6) 7.29 (7.35-7.45)
[2017-01-07 04:44] LABS: MODALITY VENTILATOR; PCO2(98.6) 87 mmHg (35-45)
[2017-01-07 06:03] LABS: BASO% 0.2 % (0.0-0.8); EOS# 0.15 X1000 (0.0-0.7); EOS% 0.9 % (0.0-10.0); HEMATOCRIT 31.5 % (42.0-52.0); HEMOGLOBIN 8.8 g/dL (14.0-18.0); IMM GRAN# 0.05 X1000 (0.0-0.04); IMM GRAN% 0.3 % (0.0-0.5); LYMPH# 1.73 X1000 (1.2-3.4); LYMPH% 10.7 % (20.5-51.1); MANUAL DIFF NEEDED? NO; MCH 27.9 PG (27-31); MCHC 27.9 g/dL (33-37); MONO% 11.1 % (1.7-9.3); MPV 10.8 FL (7.4-10.4); NEUT% 76.8 % (42.2-75.2); PLT 201 X1000 (130-400); RBC 3.15 XMIL (4.7-6.1)
[2017-01-07 06:14] LABS: MAGNESIUM 1.8 mg/dL (1.5-2.7)
--- NOTE | 2017-01-07 06:28 | Diag Imaging Result Doc PS360 ---
EXAM: CHEST-PORTABLE HISTORY: respiratory failure TECHNIQUE: Portable COMPARISON: 01/06/2017 FINDINGS: No change in the endotracheal tube. A right-sided PICC line has been placed with the tip overlying the right atrium. Worsening bilateral infiltrates. The heart is enlarged and there are small pleural effusions. IMPRESSION: Worsening infiltrates Electronically signed by Flynn Amaya 01/07/2017 6:26 AM
[2017-01-07 07:14] LABS: ALBUMIN 2.6 g/dL (3.5-5.0); CALCIUM 8.2 mg/dL (8.8-10.2); POTASSIUM 3.8 mmol/L (3.5-5.1); TOTAL BILIRUBIN 0.38 mg/dL (0.20-1.00); TOTAL PROTEIN 5.5 g/dL (6.3-8.3)
[2017-01-07] MEDS: MUCOMYST 20% INH SCH ×2 (07:45→19:55)
[2017-01-07] MEDS: ROCEPHIN 1 GM/NS 1 GM/50 ML IVPB IV SCH (08:32)
[2017-01-07] MEDS: D5 1/2 NS 1,000 ML IV SCH ×3 (08:33→21:36)
[2017-01-07] MEDS: LASIX IV SCH ×2 (08:40→21:35)
[2017-01-07] MEDS ORDERED: LASIX ONE (08:41)
--- NOTE | 2017-01-07 09:17 | PROGRESS NOTE ---
DATE: 01/07/2017 VITAL SIGNS: Temperature 98.8 degrees, heart rate 99, respirations 12, blood pressure 128/68, O2 saturation on 100%, FiO2 via ventilator 98%. LABORATORY: Hemoglobin 8.8, hematocrit 31.5, white blood count 16,200 with 77% neutrophils. Sodium 141, potassium 3.8, BUN 54, creatinine 3.9, phosphorus 4.8, calcium 8.2, total protein 5.5, albumin 2.6. SUBJECTIVE: Patient had some blood pressure problems with hypotension responding temporarily to fluid boluses. Finally there was minimal response and systolic blood pressure was in the mid 60s. He was placed on phenylephrine per protocol. Blood pressure is better at this point, but BUN and creatinine are more elevated. Chest x-ray shows worsening bilateral infiltrates and small pleural effusions. PLAN: Decrease IV fluids and give Lasix 40 mg IV q. 12 hours. Prognosis is poor. Limited discussion was made with the family yesterday. cc: Juan Castañeda MD
[2017-01-07] MEDS: LEVAQUIN 250 MG/D5W 250 MG/50 ML IVPB IV SCH (10:09)
[2017-01-07] MEDS: MORPHINE IV PRN (10:57)
[2017-01-07] MEDS ORDERED: QUELICIN (DOSE) ONE (12:50)
[2017-01-07] MEDS ORDERED: DIPRIVAN 1% ONE (12:50)
--- NOTE | 2017-01-07 13:13 | Diag Imaging Result Doc PS360 ---
EXAM: CHEST-PORTABLE HISTORY: NG tube placement TECHNIQUE: AP portable supine at 1300 COMMENT: there is an endotracheal tube with its tip of the thoracic inlet. There is an NG tube which appears to pass below the diaphragm. The lungs are actually slightly better expanded than on 01/07/2017. There is still bibasilar alveolar opacity consistent with pulmonary edema. IMPRESSION: Pulmonary edema. Possibility of pneumonia cannot be excluded. Electronically signed by Shai Houston 01/07/2017 1:11 PM
[2017-01-07] MEDS: ATIVAN IV PRN (13:41)
[2017-01-07] MEDS: NEXIUM IV SCH (16:14)
--- NOTE | 2017-01-07 18:40 | CONSULTATION ---
DATE OF CONSULTATION: 01/07/2017 REASON FOR CONSULTATION: Renal failure. HISTORY OF PRESENT ILLNESS: Mr. Yoon is an 81-year-old man who I have seen in the past. He has advanced stage 4 chronic kidney disease and has had episodes of overlying acute kidney injury such that his creatinine has been as high as 6 in September of this year but his baseline is around 2.5 to 3 with a GFR in the low to mid 20s. He had an episode of loss of consciousness at home attended by worsened shortness of breath. The ambulance was called and he was transported to the hospital and ultimately intubated and placed on the ventilator. His oxygen requirements have increased progressively since admission such that he is now on 100% FiO2 and in this context, his urine output has fallen progressively such that he only had 275 mL of urine output over the last 24 hours. He has progressive swelling by the family's report though he has been in negative fluid balance. I am asked to see him and assist with his care in any way that I can. Dr. Manzano asked for the consult. PAST MEDICAL HISTORY: 1. End-stage COPD with chronic hypoxemic and hypercapnic respiratory failure. 2. Pulmonary hypertension and cor pulmonale. 3. Congestive heart failure. 4. Dementia. 5. Schizophrenia. 6. Chronic kidney disease stage 4. SOCIAL HISTORY: He lives with his . Former tobacco use. FAMILY HISTORY: Noncontributory for this illness. PHYSICAL EXAMINATION: Vital Signs: Blood pressure 111/58, heart rate 104, respirations 10, temperature 100.5 degrees. Generally: He is an elderly man, sedated on the ventilator. He does respond to tactile stimuli but no eye contact or attention. Skin: Warm and dry. The left arm is somewhat erythematous and warm and swollen. HEENT: Pupils are equal. Conjunctivae are pink. Oropharynx is dry. Neck: Neck veins are distended. Trachea is midline. Heart: Irregular but no gallops or murmurs. Lungs: Equal breath sounds. Coarse, a few crackles. Abdomen: Soft and nontender. Bowel sounds are present. No organomegaly or masses. Extremities: Have 2+ edema. No clubbing or cyanosis. LABORATORY DATA: Reviewed. IMPRESSION: Oliguric acute renal failure overlying chronic kidney disease in the context of severe end-stage lung disease. PLAN: I had a long and detailed discussion with the , daughter and son regarding his condition. Because of his advanced lung disease dialysis would not ordinarily be offered, because it is unlikely to change his outcome in any measurable way. I also expressed the severe limitations of ongoing treatment with the ventilator. Specifically, he was in a very limited functional status and constant pain and discomfort at home at his baseline. As such, the odds of him returning to a satisfactory state after being on the ventilator is vanishingly small. My advice would be to change the direction of our care to comfort care only with avoidance of dialysis and withdrawal of ventilator support. They all expressed agreement with this sentiments that I have voiced. I encouraged them to talk among themselves and let the staff know what their wishes are. From my perspective, there is really nothing else to offer from a nephrology standpoint. Thank you for the consult. cc: MD Juan Dc MD
[2017-01-08] MEDS ORDERED: DUONEB (A & A) ONE ×2 (03:12)
[2017-01-08] MEDS: DUONEB (A & A) INH SCH ×6 (03:40→23:20)
[2017-01-08 04:38] LABS: ALLEN TEST YES; BLOOD TYPE ARTERIAL; DRAW SITE R RADIAL; METHB 0.8 % (0.0-1.5); PO2(98.6) 165 mmHg (60-100); SAMPLE BLOOD; SAO2 99.8 % (95.0-100.0); SRATE 10 BPM; THB 12.2 g/dL (11.5-17.4); TVOL 550 mL; pH(98.6) 7.21 (7.35-7.45)
[2017-01-08 04:39] LABS: MODALITY VENTILATOR; PCO2(98.6) 92 mmHg (35-45)
[2017-01-08] MEDS: ATIVAN IV PRN (06:12)
[2017-01-08 06:33] LABS: ALBUMIN 2.4 g/dL (3.5-5.0); CALCIUM 8.8 mg/dL (8.8-10.2); POTASSIUM 4.2 mmol/L (3.5-5.1); TOTAL BILIRUBIN 0.29 mg/dL (0.20-1.00); TOTAL PROTEIN 5.3 g/dL (6.3-8.3)
--- NOTE | 2017-01-08 07:10 | Diag Imaging Result Doc PS360 ---
EXAM: CHEST-PORTABLE HISTORY: respiratory failure TECHNIQUE: AP portable at 0500 COMMENT: Compared to 01/07/2017 there is slightly worsening consolidation over the left lower lobe and lingula and in the upper lung zones. Otherwise has been no significant change. IMPRESSION: Pulmonary edema plus minus pneumonia particularly in the left lower lobe. Electronically signed by Shai Houston 01/08/2017 7:07 AM
[2017-01-08] MEDS: MORPHINE IV PRN ×2 (07:22→15:20)
[2017-01-08] MEDS: MUCOMYST 20% INH SCH (08:07)
[2017-01-08] MEDS: ROCEPHIN 1 GM/NS 1 GM/50 ML IVPB IV SCH (08:56)
[2017-01-08] MEDS: LASIX IV SCH ×2 (08:56→22:27)
[2017-01-08] MEDS: LEVAQUIN 250 MG/D5W 250 MG/50 ML IVPB IV SCH (09:44)
[2017-01-08 09:48] LABS: ALLEN TEST YES; BE 7.2 mmoll (-3.0-3.0); BLOOD TYPE ARTERIAL; DRAW SITE R RADIAL; METHB 1.2 % (0.0-1.5); MODALITY VENTILATOR; O2(CT) 12.5 mL/dL (15.0-23.0); PO2(98.6) 70 mmHg (60-100); SAMPLE BLOOD; SAO2 97.2 % (95.0-100.0); SRATE 14 BPM; THB 9.4 g/dL (11.5-17.4); TVOL 550 mL; pH(98.6) 7.27 (7.35-7.45)
[2017-01-08 09:49] LABS: PCO2(98.6) 78 mmHg (35-45)
[2017-01-08] MEDS: D5 1/2 NS 1,000 ML IV SCH (10:40)
[2017-01-08] MEDS ORDERED: HEPARIN SUBQ ONE (10:47)
--- NOTE | 2017-01-08 13:03 | PROGRESS NOTE ---
DATE: 01/08/2017 PRIMARY CARE PHYSICIAN: Dr. Juan Castañeda. CHIEF MEDICAID NURSE: Dr. Dorian Morgan. PULMONARY: Dr. Isaac Cunha. SUBJECTIVE: Overnight, the patient remains with NG and intubation, currently on tubes feeds with noted NG feeds being held secondary to that situation. O2 saturations ranging from about 90-100 per nursing. The patient is afebrile. OBJECTIVE: Vital Signs: Vital signs showed temperature of 98.2 degrees, pulse 112, blood pressure 137/66, O2 saturation 94% on mechanical ventilation at approximately 15 L/minute. General: Patient is an elderly male, sedated on ventilation, minimally responsive to only extreme tactile stimuli, poor attention. Skin: Warm and dry. HEENT: Shows equal pupils, conjunctivae are pink. OP is dry. Neck: Neck veins are distended. Trachea is midline. CV: Regular rate, but irregular rhythm. Lungs: Show breath sounds that are equal; decreased breath sounds to the bilateral bases with wet crackles. Abdomen: Soft, nontender. Bowel sounds present. No masses noted. Extremities: 2+ with no clubbing or edema. LABS: WBC of 16.2. ABG shows pH of 7.27 with a pCO2 of 78, a bicarbonate of 30.5, so mixed respiratory and acidosis and metabolic alkalosis compensated. Currently on ventilator AC mode at FiO2 of 70%, rate of 14. Chemistry shows a creatinine of 4.9, BUN of 64, total protein 5.3. MICROBIOLOGY: Representing a Pseudomonas aeruginosa. A sputum culture from 01/03 pansensitive. IMAGING: Shows chest x-ray 01/08/2017 that shows pulmonary edema, plus/minus pneumonia, particularly left lower lobe. Otherwise, no significant changes. ASSESSMENT/PLAN: An 81-year-old male with: 1. Pseudomonas aeruginosa pneumonia currently on ceftriaxone since 01/03 along with Levaquin added per pulmonary on 01/07. 2. Severe chronic obstructive pulmonary disease cor pulmonale. 3. Recurrent right heart failure, diastolic. 4. Acute on chronic hypercapnic respiratory failure. Plans are to continue full ventilator and support with diuresis initiated. Continue the daily chest x-rays and evaluation of the fluid overload status. Based on my evaluation, the patient is low functioning and we will continue to follow the pulmonary progress and the supportive care as noted, but the patient will likely need palliation and further discussions with family regarding the end result of this therapy and the likely possibility. Patient is a DNR level 2. cc: MD Juan Macias MD
--- NOTE | 2017-01-08 14:10 | PROGRESS NOTE ---
DATE: 01/08/2017 SUBJECTIVE: About the same. OBJECTIVE: Vital Signs: Blood pressure 137/66, heart rate 108, respirations 14, afebrile. Intake 3.5 L. Output 100 mL. PHYSICAL EXAM: Sedated on the ventilator.Skin: Warm and dry. The left arm is less red today. HEENT: Pupils are equal. Conjunctivae are pink. Neck: Neck veins are distended. Heart: Regular and tachycardic. Lungs: Have equal breath sounds. Coarse, few crackles. Abdomen: Soft, nontender. Bowel sounds present. Extremities: Have 1 to 2+ edema. No clubbing or cyanosis. LABORATORY DATA: Sodium 138, potassium 4.2, chloride 94, bicarbonate 33, BUN 64, creatinine 4.9. IMPRESSION: Acute kidney injury overlying chronic kidney disease. As discussed yesterday he is really not a candidate for intervention. The family understands this. Nothing further to add. We will minimize his intake today. cc: MD Juan Dc MD
[2017-01-08] MEDS: NEO-SYNEPHRINE 50 MG in NS 250 ML IV SCH (14:14)
[2017-01-08] MEDS: NEXIUM IV SCH (15:07)
[2017-01-09] MEDS: DUONEB (A & A) INH SCH ×6 (03:32→23:43)
[2017-01-09 05:02] LABS: ALLEN TEST YES; BE 3.9 mmoll (-3.0-3.0); BLOOD TYPE ARTERIAL; DRAW SITE R RADIAL; METHB 1.3 % (0.0-1.5); O2(CT) 17.4 mL/dL (15.0-23.0); PO2(98.6) 93 mmHg (60-100); SAMPLE BLOOD; SAO2 98.1 % (95.0-100.0); SRATE 14 BPM; THB 12.9 g/dL (11.5-17.4); TVOL 550 mL; pH(98.6) 7.26 (7.35-7.45)
[2017-01-09 05:04] LABS: MODALITY VENTILATOR; PCO2(98.6) 74 mmHg (35-45)
[2017-01-09 05:50] LABS: BASO% 0.3 % (0.0-0.8); EOS# 0.08 X1000 (0.0-0.7); EOS% 0.5 % (0.0-10.0); IMM GRAN# 0.06 X1000 (0.0-0.04); IMM GRAN% 0.4 % (0.0-0.5); LYMPH# 0.89 X1000 (1.2-3.4); LYMPH% 5.9 % (20.5-51.1); MANUAL DIFF NEEDED? YES; MCH 27.7 PG (27-31); MCV 95.4 FL (81-99); MONO# 2.11 X1000 (0.11-0.59); MPV 10.7 FL (7.4-10.4); NEUT% 78.9 % (42.2-75.2); PLT 229 X1000 (130-400); RBC 3.25 XMIL (4.7-6.1)
[2017-01-09 06:09] LABS: ALBUMIN 2.3 g/dL (3.5-5.0); CALCIUM 8.8 mg/dL (8.8-10.2); POTASSIUM 4.6 mmol/L (3.5-5.1); TOTAL BILIRUBIN 0.25 mg/dL (0.20-1.00); TOTAL PROTEIN 4.4 g/dL (6.3-8.3)
[2017-01-09 06:54] LABS: BANDS 4 % (0-1); LYMPHS 6 % (21-51); MONO 14 % (1-9)
--- NOTE | 2017-01-09 07:04 | Diag Imaging Result Doc PS360 ---
EXAM: CHEST-PORTABLE HISTORY: respiratory failure TECHNIQUE: AP portable at 0500 COMMENT: Endotracheal tube tip remains at the thoracic inlet. NG tube passes below the diaphragm. There is a PICC line on the right with its tip in the superior vena cava. There is diffuse pulmonary edema. There has been no appreciable change since the previous study of 01/08/2017. There is somewhat denser consolidation and volume loss in the left lower lobe which may be due to atelectasis. Possibility of pneumonia cannot be excluded. IMPRESSION: Pulmonary edema, stable. Electronically signed by Shai Houston 01/09/2017 7:02 AM
[2017-01-09] MEDS: MORPHINE IV PRN ×2 (07:19→12:51)
[2017-01-09] MEDS: NEO-SYNEPHRINE 50 MG in NS 250 ML IV SCH ×2 (07:20→16:36)
[2017-01-09] MEDS: MUCOMYST 20% INH SCH ×2 (07:46→19:30)
[2017-01-09] MEDS: ROCEPHIN 1 GM/NS 1 GM/50 ML IVPB IV SCH (09:00)
[2017-01-09] MEDS: LASIX IV SCH ×2 (09:00→19:59)
[2017-01-09] MEDS: LEVAQUIN 250 MG/D5W 250 MG/50 ML IVPB IV SCH (10:59)
[2017-01-09] MEDS ORDERED: CLINIMIX E 4.25%-5% SOLUTION 1,000 ML IV SCH (13:20)
--- NOTE | 2017-01-09 15:12 | PROGRESS NOTE ---
DATE: 01/09/2017 PRIMARY CARE PHYSICIAN: Dr. Juan Castañeda. Dr. Jose Cervantes dictating for Dr. Castañead. Patient is also being seen by Dr. Dorian Morgan, Nephrology, and Dr. Manzano of Pulmonary. SUBJECTIVE: Overnight, minimal change. Patient was seen with Pulmonary because of the high-flow O2. Decision for remaining under intubation was made. No extubation noted. The patient does continue to have increased oral secretions and residual was greater than 100. Tube feedings were stopped at that time secondary to that evaluation. OBJECTIVE: Vital signs: Temperature 99.8 degrees, pulse 104, respirations on mechanical vent, noted blood pressure 89/53, O2 saturation noted to be normal at FiO2 of 50%. Input and output show a little bit, 300 mL positive, mainly due to the Edgar-Synephrine. Patient's residuals are above expectation. The patient is having bowel movements. Nothing overtly infectious in origin. PHYSICAL EXAMINATION: General: male, no acute distress. Intubated and with minimal sedation. Mild agitation noted on tactile stimulus, but minimal response. Pupils are equal, round, react to light and accommodation. No doll's eye noted. Nasogastric tube in place. HEENT: Oropharynx is dry, mucous membranes are dry as well. Neck: Supple. There is positive JVD. CARDIOVASCULAR: Tachycardic with irregular rhythm. S4 noted. Lungs: Decreased breath sounds at the bilateral bases and rhonchi throughout. Abdomen: Protuberant. Bowel sounds are scant. Right upper Extremity: Noted to have swelling 2+. No longer pitting. Improved over prior exam. Neurologic: The patient is sedated to the point of obtundation. LABORATORY: WBC 15.02 with an hemoglobin and hematocrit of 9 and 31. Platelets 229,000. Neutrophils, primarily unchanged. ABG shows respiratory acidosis with bicarb trending down 27.9 on AC mode at a rate of 14, FiO2 of 70. Chemistry shows creatinine down from 4.9 to 4.5. POC glucose within expected range. Protein 4.4, albumin 2.3. CHEST X-RAY: 01/09/2017, shows stable pulmonary edema within an endotracheal tube at the thoracic inlet. Nasogastric tube passing below the diaphragm, PICC on the right. Tip in the superior vena cava. No appreciable change. ASSESSMENT: 1. An 81-year-old male with severe chronic obstructive pulmonary disease along with cor pulmonale. Now requiring maximum ventilatory support. 2. Pseudomonas aeruginosa pneumonia. Ceftriaxone day 6, plus Levaquin. 3. Recurrent right heart failure, diastolic. 4. Acute on chronic hypercapnic respiratory failure. 5. Acute kidney injury on chronic kidney disease. 6. Left upper extremity edema. PLAN: We will continue full ventilation, along with the Edgar-Synephrine to maintain normal blood pressure. Hold fluids at this time and switch to low-volume of Clinimix as we are having residuals above expectation. Nasogastric tube to suction as necessary. Discussion held with the family regarding major changes, questions or concerns. Patient's family is aware of the dire nature of the condition and continue to direct him as appropriate. Appreciate both Pulmonary and Nephrology support regarding this case. cc: MD Juan Macias MD
[2017-01-09] MEDS: NEXIUM IV SCH (16:36)
[2017-01-10] MEDS: DUONEB (A & A) INH SCH ×6 (03:25→23:24)
[2017-01-10 04:41] LABS: ALLEN TEST YES; BE 2.3 mmoll (-3.0-3.0); BLOOD TYPE ARTERIAL; DRAW SITE R RADIAL; O2(CT) 13.7 mL/dL (15.0-23.0); PO2(98.6) 143 mmHg (60-100); SAMPLE BLOOD; SAO2 99.6 % (95.0-100.0); SRATE 14 BPM; THB 9.8 g/dL (11.5-17.4); TVOL 550 mL; pH(98.6) 7.25 (7.35-7.45)
[2017-01-10 04:42] LABS: MODALITY VENTILATOR; PCO2(98.6) 70 mmHg (35-45)
[2017-01-10] MEDS: NEO-SYNEPHRINE 50 MG in NS 250 ML IV SCH ×3 (04:55→21:01)
[2017-01-10 06:32] LABS: BASO% 0.2 % (0.0-0.8); EOS# 0.15 X1000 (0.0-0.7); EOS% 0.9 % (0.0-10.0); HEMATOCRIT 31.5 % (42.0-52.0); HEMOGLOBIN 9.2 g/dL (14.0-18.0); IMM GRAN% 0.6 % (0.0-0.5); LYMPH# 1.74 X1000 (1.2-3.4); LYMPH% 10.3 % (20.5-51.1); MANUAL DIFF NEEDED? YES; MCH 27.9 PG (27-31); MCHC 29.2 g/dL (33-37); MCV 95.5 FL (81-99); MONO# 2.29 X1000 (0.11-0.59); MONO% 13.6 % (1.7-9.3); MPV 10.8 FL (7.4-10.4); NEUT% 74.4 % (42.2-75.2); PLT 259 X1000 (130-400)
--- NOTE | 2017-01-10 06:35 | Diag Imaging Result Doc PS360 ---
CHEST-PORTABLE - 01/10/2017 INDICATION: respiratory failure TECHNIQUE: COMPARISON: 01/09/2017 FINDINGS: Support lines and tubes are stable. Stable cardiomegaly and pulmonary vascular congestion. Stable diffuse interstitial pulmonary edema. There is significant improvement in aeration and volume loss at the left lung base. IMPRESSION: Resolution of the left lower lobe collapse, with good aeration here at this point. Otherwise no change from prior. Electronically signed by Saji Escobar 01/10/2017 6:32 AM
[2017-01-10 07:00] LABS: ALBUMIN 2.4 g/dL (3.5-5.0); CALCIUM 9.2 mg/dL (8.8-10.2); POTASSIUM 4.8 mmol/L (3.5-5.1); TOTAL BILIRUBIN 0.23 mg/dL (0.20-1.00); TOTAL PROTEIN 4.5 g/dL (6.3-8.3)
[2017-01-10 07:17] LABS: BANDS 10 % (0-1); LYMPHS 5 % (21-51); MONO 11 % (1-9)
[2017-01-10] MEDS: MUCOMYST 20% INH SCH ×2 (07:59→19:30)
[2017-01-10] MEDS: LASIX IV SCH ×2 (08:08→21:02)
[2017-01-10] MEDS: ROCEPHIN 1 GM/NS 1 GM/50 ML IVPB IV SCH (08:08)
--- NOTE | 2017-01-10 08:20 | PROGRESS NOTE ---
DATE: 01/10/2017 OBJECTIVE: Vital Signs: Temperature 97.4 degrees, heart rate 95, respirations 14, blood pressure 107/56, O2 saturation 100% on ventilator, with 100% FiO2. LABORATORY DATA: Hemoglobin 9.2, hematocrit 31.5, white blood count 16,900, with 74% neutrophils. Sodium 142, potassium 4.8. BUN 92, creatinine 5.2. Glucose 112. Liver functions normal. ProBNP greater than 35,000. Total protein 4.5, albumin 2.4. Patient is on Diprivan. Chest x-ray shows resolution of left lower lobe collapse with good aeration. There is stable cardiomegaly and pulmonary vascular congestion. There is stable diffuse interstitial pulmonary edema. Consideration will be made of discontinuing Diprivan and trying to get back on BiPAP. This will be left to Dr. Cunha. cc: Juan Castañeda MD
[2017-01-10] MEDS: LEVAQUIN 250 MG/D5W 250 MG/50 ML IVPB IV SCH (09:47)
[2017-01-10] MEDS: NEXIUM IV SCH (14:51)
[2017-01-10] MEDS: CLINIMIX E 4.25%-5% SOLUTION 1,000 ML IV SCH (18:15)
[2017-01-10] MEDS: MORPHINE IV PRN (21:01)
[2017-01-11] MEDS: DUONEB (A & A) INH SCH ×6 (03:45→22:34)
[2017-01-11 05:09] LABS: ALLEN TEST YES; BE 2.7 mmoll (-3.0-3.0); BLOOD TYPE ARTERIAL; DRAW SITE R RADIAL; PO2(98.6) 99 mmHg (60-100); SAMPLE BLOOD; SRATE 14 BPM; TVOL 550 mL; pH(98.6) 7.26 (7.35-7.45)
[2017-01-11 05:12] LABS: MODALITY VENTILATOR; PCO2(98.6) 71 mmHg (35-45)
[2017-01-11] MEDS: NEO-SYNEPHRINE 50 MG in NS 250 ML IV SCH (05:40)
[2017-01-11 06:00] LABS: ALBUMIN 2.1 g/dL (3.5-5.0); CALCIUM 8.7 mg/dL (8.8-10.2); POTASSIUM 4.5 mmol/L (3.5-5.1); TOTAL BILIRUBIN 0.15 mg/dL (0.20-1.00); TOTAL PROTEIN 4.3 g/dL (6.3-8.3)
--- NOTE | 2017-01-11 06:21 | Diag Imaging Result Doc PS360 ---
EXAM: CHEST-PORTABLE HISTORY: respiratory failure TECHNIQUE: Portable COMPARISON: 01/10/2017 FINDINGS: No change in the endotracheal tube, right-sided PICC line, nasogastric tube. There are dense infiltrates throughout the right lung. Infiltrates in the mid left lung are slightly less pronounced. The heart is not enlarged. Questionable small left pleural effusion basilar atelectasis. IMPRESSION: Minimal improvement in the mid left lung although dense infiltrates remain throughout the right lung and in the left base. Electronically signed by Flynn Amaya 01/11/2017 6:19 AM
[2017-01-11] MEDS: MUCOMYST 20% INH SCH ×2 (07:30→18:47)
[2017-01-11] MEDS: LASIX IV SCH ×2 (07:53→20:21)
[2017-01-11] MEDS: ATIVAN IV PRN (07:53)
[2017-01-11] MEDS: ROCEPHIN 1 GM/NS 1 GM/50 ML IVPB IV SCH (07:53)
[2017-01-11] MEDS ORDERED: LANOXIN ONE (08:27)
[2017-01-11] MEDS ORDERED: LANOXIN IV ONE (08:40)
[2017-01-11] MEDS ORDERED: CARDIZEM IV ONE (08:41)
[2017-01-11] MEDS: LEVAQUIN 250 MG/D5W 250 MG/50 ML IVPB IV SCH (09:14)
--- NOTE | 2017-01-11 09:14 | PROGRESS NOTE ---
DATE: 01/11/2017 VITAL SIGNS: Temperature 97.7 degrees, heart rate 152, respirations 14, blood pressure 102/74, O2 saturation 97% on ventilator at 70% FiO2. LABORATORY DATA: Sodium 139, potassium 4.5. BUN 104, creatinine 5.7. Calcium 8.7, total protein 4.3, albumin 2.1. SUBJECTIVE: The patient was free of sedative medication this morning when he developed a rapid heart rate with irregular rate, atrial fibrillation. He was given Ativan to see if the tachycardia was related to agitation, but this did not change his heart rate. He was given 0.25 mg of digoxin and will be given Cardizem [address] Hogue is consulted for additional assistance. Chest x-ray is basically unchanged with persistent infiltrates throughout the lower right lung and in the left base. Blood gases reveal pH 7.26, pCO2 71, PO2 99 on rate of 14, FiO2 70, volume 550 and PEEP 5.0. Prognosis continues to be poor. He is not a candidate for dialysis with hypotension and phenylephrine for support. cc: Juan Castañeda MD
--- NOTE | 2017-01-11 09:30 | CONSULTATION ---
DATE OF CONSULTATION: 01/11/2017 REQUESTING PHYSICIAN: Dr. Juan Castañeda REASON FOR CONSULTATION: Atrial fibrillation with rapid response. HISTORY OF PRESENT ILLNESS: Mr. Yoon is an unfortunate 81-year-old black gentleman who has been admitted to the hospital on 01/01/2017 through the emergency room department with acute respiratory failure. The patient was intubated and has been placed on mechanical ventilation. He was apparently unresponsive at the time of initial presentation. The patient subsequently got to be extubated briefly and then reintubated. Over the course of the several days of hospitalization, he has developed progressive renal failure. He has been evaluated by Dr. Morgan in consultation who has recommended that no dialysis be done because of the patient's overall poor general prognosis. The patient at this time is a DNR level number 2. Apparently last night or early this morning, the patient developed a change in rhythm from sinus rhythm with PACs to atrial fibrillation with rapid response. EKG done at 7:19 in the morning on 01/11/2017 shows atrial fibrillation with low voltage with PVCs and rapid response. The patient is unresponsive. He is sedated. He does not provide any information, and there is no family around. PAST MEDICAL HISTORY: On review of records, this patient has been admitted multiple times to the hospital for respiratory failure. Apparently he follows regularly with Dr. Cunha. He has been diagnosed as having Pseudomonas aeruginosa pneumonia. Presently he is being treated for it. He has had chronic kidney disease, and presently he is in acute renal failure. He has had previous admissions to the hospital with congestive heart failure. About 2 months ago, he was seen in consultation by Dr. Ralph Goldstein from our team who was called in because of elevated troponin levels. That was thought to relate to acute kidney injury. On subsequent visits, his condition was deemed to be not primarily from cardiac origin. The patient has had an echocardiogram done about 3 months ago, 10/09/2016, which showed normal left ventricular systolic function with moderate pulmonary hypertension and at that time, there was no evidence of pericardial effusion. The patient has had a chest x-ray just today that shows minimal improvement in mid left lung, although dense infiltrates remain throughout the right lung. On additional history, he has had dyslipidemia, he has had gastric ulcer. He has had previous cholecystectomy. He has had previous tobacco use. FAMILY HISTORY: Noncontributory for heart disease. SOCIAL HISTORY: Lives with . He is retired. REVIEW OF SYSTEMS: Not obtainable. PHYSICAL EXAMINATION: Today, blood pressure is 102/74, temperature 97.7, pulse 99, respirations 14. He is intubated and mechanically ventilated. He has a nasogastric tube. HEENT: Unremarkable. Chest: Diminished breath sounds bilaterally. Heart sounds distant, irregularly irregular. Abdomen is obese, probably somewhat distended. Bowel sounds diminished. There is no hepatomegaly. Extremities showed diminished pulses. He does have diffuse anasarca edema in the upper and lower extremities. Neurologic: He is intubated. He does not respond to verbal commands or painful stimuli. DIAGNOSTIC DATA: Blood work today showed sodium is 139, potassium 4.5, his BUN has gone up to 104, creatinine has gone up to 5.7. Potassium is 4.5. Chloride is 95, carbon dioxide 28. Blood gases showed pH of 7.26, pCO2 of 71, pO2 of 99. Albumin was 2.1. Yesterday, his hemoglobin was 9.2. IMPRESSION: 1. The patient has developed paroxysmal atrial fibrillation with rapid ventricular response in the midst of progressive renal insufficiency complicating acute on chronic respiratory failure. This is probably a preterminal event or terminal event. 2. Chronic lung disease, chronic obstructive pulmonary disease, pseudomonas pneumonia. Patient is being supported with mechanical ventilation at this time. 3. Chronic and acute kidney disease. The patient has been ruled out as a candidate for dialysis. Patient is likely to be in a state of fluid overload ,and that is probably contributing to the development of the aforementioned arrhythmia. RECOMMENDATIONS: At this point in time, the patient is DNR level 2. Dr. Castañeda had requested my help. I would suggest to try Edgar-Synephrine plus Cardizem to control the heart rate. No other heroic measures probably need to be applied in this case. The patient is really terminal, and with his acute renal failure,and in the absence of dialysis, he is not likely to survive more than a few days. Thank you again for asking us to participate in his evaluation. Please call me if you have any questions. cc: MD Juan Chaney MD [facility]
[2017-01-11] MEDS: CARDIZEM 100 MG/NS 100 MG/100 ML IVPB IV SCH ×3 (09:32→23:35)
[2017-01-11] MEDS: NEO SYNEPHRINE IV SCH ×3 (10:44→22:32)
[2017-01-11] MEDS: NS IV SCH ×3 (10:44→22:32)
[2017-01-11] MEDS: CLINIMIX E 4.25%-5% SOLUTION 1,000 ML IV SCH (14:34)
[2017-01-11] MEDS: NEXIUM IV SCH (17:04)
[2017-01-12] MEDS: DUONEB (A & A) INH SCH ×6 (02:29→22:51)
[2017-01-12 03:43] LABS: CALCIUM 8.5 mg/dL (8.8-10.2); POTASSIUM 4.7 mmol/L (3.5-5.1)
[2017-01-12 03:58] LABS: ALLEN TEST YES; BE -3.3 mmoll (-3.0-3.0); BLOOD TYPE ARTERIAL; DRAW SITE R RADIAL; METHB 1.5 % (0.0-1.5); O2(CT) 17.2 mL/dL (15.0-23.0); PO2(98.6) 79 mmHg (60-100); SAMPLE BLOOD; SAO2 96.2 % (95.0-100.0); SRATE 14 BPM; THB 13.1 g/dL (11.5-17.4); TVOL 550 mL
[2017-01-12 03:59] LABS: MODALITY VENTILATOR; PCO2(98.6) 76 mmHg (35-45); pH(98.6) 7.16 (7.35-7.45)
--- NOTE | 2017-01-12 05:19 | EKG Report ---
Test Performed on : 01/11/2017 07:19:20 AM Test Reason : ARRYTHMIA Blood Pressure : / mmHG Vent. Rate : 157 BPM Atrial Rate : 064 BPM P-R Int : 000 ms QRS Dur : 086 ms QT Int : 294 ms P-R-T Axes : 000 098 -25 degrees QTc Int : 475 ms junctional tachycardia Low voltage QRS Possible Lateral infarct , age undetermined Cannot rule out Inferior infarct , age undetermined Abnormal ECG No previous ECGs available Confirmed by Rosita Daniels MD ([id number]) on 01/12/2017 8:20:58 AM
[2017-01-12] MEDS: MUCOMYST 20% INH SCH ×2 (07:02→18:58)
--- NOTE | 2017-01-12 07:29 | Diag Imaging Result Doc PS360 ---
EXAM: CHEST-PORTABLE INDICATION: respiratory failure TECHNIQUE: One view COMPARISON: 01/11/2017 FINDINGS: Support tubes and lines are in stable position. Patient is rotated toward the left. Infiltrates at the mid and lower lung zones bilaterally, worse on the right, are approximately stable given differences in positioning. There are no definite new consolidations. Cardiac silhouette is stable. IMPRESSION: Essentially stable chest. Electronically signed by Zander Emerson 01/12/2017 7:27 AM
[2017-01-12] MEDS: ROCEPHIN 1 GM/NS 1 GM/50 ML IVPB IV SCH (07:40)
[2017-01-12] MEDS: NEXIUM IV SCH (07:40)
[2017-01-12] MEDS: LASIX IV SCH ×2 (07:45→20:57)
--- NOTE | 2017-01-12 07:52 | PROGRESS NOTE ---
DATE: 01/12/2017 VITAL SIGNS: Temperature 98.3 degrees, heart rate 79, respirations 15, blood pressure 119/51, O2 saturation on ventilator 94%. Intake and output positive 2788. LABORATORY: Sodium 138, potassium 4.7, BUN 120, creatinine 6.2, glucose 116, calcium 8.5. Blood gases: PH 7.16, pCO2 76, PO2 79 on 75% FiO2 with rate 14 and volume 550. IMPRESSION AND PLAN: Patient is unresponsive on Diprivan. Heart rhythm has remained sinus on Cardizem IV. He continues to be on phenylephrine to supportive his blood pressure. Condition is terminal at this point. Discussion will be made with the family concerning discontinuation of ventilator and other medications. cc: Juan Castañeda MD
--- NOTE | 2017-01-12 09:16 | PROGRESS NOTE ---
DATE: 01/12/2017 CHIEF COMPLAINT: Irregular heartbeat, respiratory failure. SUBJECTIVE: Mr. Yoon remains intubated. He has converted to sinus rhythm with the interventions performed yesterday including IV diltiazem and digoxin. The patient is at this time unresponsive. He also was put on IV Edgar-Synephrine on a p.r.n. basis to optimize his blood pressure. OBJECTIVE: Vital signs: Blood pressure right now is 130/51, pulse is 79, his temperature is 97.9, respirations 14. General: He is sedated. He is breathing along with the ventilator. HEENT: Unremarkable. He has generalized edema. Chest: Diminished breath sounds bilaterally. Cardiac: Heart sounds are regular and rhythmic. No definite gallop or murmur is noted. Abdomen: Obese, distended. Extremities: Diffuse anasarca edema. Neurological: Exam cannot be performed. The patient is really very sedated. BLOOD WORK: ABGs: pH is 7.16, pCO2 is 76, pO2 is 79. His sodium is 138, potassium 4.7, BUN 120, creatinine 6.2, chloride 97, carbon dioxide 24. His hemoglobin on the 3rd was 9. IMPRESSION: 1. Respiratory failure on top of chronic lung disease, acute. 2. Acute renal failure on top of chronic kidney disease. This is not reversible. The patient has been ruled out as a candidate for hemodialysis. 3. Paroxysmal atrial fibrillation probably related to the advanced state of fluid overload and his metabolic derangement. 4. History of congestive heart failure with diastolic dysfunction. RECOMMENDATION: At this point in time, I would continue present intervention with diltiazem and Edgar-Synephrine. The patient is truly terminal. His chemistry is really getting to the point that he will probably go into a cardiac arrest. The family has chosen a DNR level 2 status. I will sign off at this time. Please call me if further assistance is required. cc: MD Juan Chaney MD
[2017-01-12] MEDS: LEVAQUIN 250 MG/D5W 250 MG/50 ML IVPB IV SCH (10:03)
[2017-01-12] MEDS: CLINIMIX E 4.25%-5% SOLUTION 1,000 ML IV SCH (10:04)
[2017-01-12] MEDS ORDERED: NEO-SYNEPHRINE 100 MG in NS 500 ML IV SCH (12:15)
[2017-01-12 14:34] LABS: ALBUMIN 2.1 g/dL (3.5-5.0); ALKALINE PHOSPHATASE 73 U/L (32-122); DIRECT BILIRUBIN < 0.20 mg/dL (0.00-0.20); GOT 23 U/L (10-34); GPT 18 U/L (10-44); TOTAL BILIRUBIN 0.17 mg/dL (0.20-1.00); TOTAL PROTEIN 5.1 g/dL (6.3-8.3)
--- NOTE | 2017-01-12 18:09 | PROGRESS NOTE ---
DATE: 01/12/2017 VITAL SIGNS: Temperature 97.0 degrees, heart rate 94 and sinus rhythm, respiratory rate 11, blood pressure 126/66, O2 saturation on 75% FiO2 ventilator is 98%. Discussion was made with his and son concerning continuation of supportive care versus discontinuation of the ventilator and NG tube. They wish to wait until tomorrow morning to have an opportunity to talk with other family members. Edgar-Synephrine and Cardizem may be stopped tomorrow morning, followed by discontinuation of the ventilator and ET tube. Also discontinuation of NG tube. He will be placed on non-rebreather mask with 100% FiO2. Comfort measures only will be done. cc: Juan Castañeda MD
[2017-01-12] MEDS: ATIVAN IV PRN (20:19)
[2017-01-13] MEDS: DUONEB (A & A) INH SCH ×3 (02:41→11:00)
[2017-01-13] MEDS: ATIVAN IV PRN (05:39)
[2017-01-13] MEDS: CLINIMIX E 4.25%-5% SOLUTION 1,000 ML IV SCH (06:57)
[2017-01-13] MEDS ORDERED: NEO-SYNEPHRINE 50 MG in NS 250 ML IV SCH (07:00)
[2017-01-13] MEDS: NEXIUM IV SCH (07:17)
[2017-01-13] MEDS: ROCEPHIN 1 GM/NS 1 GM/50 ML IVPB IV SCH (07:17)
[2017-01-13 07:36] LABS: CALCIUM 8.5 mg/dL (8.8-10.2); POTASSIUM 5.4 mmol/L (3.5-5.1); TOTAL BILIRUBIN 0.18 mg/dL (0.20-1.00); TOTAL PROTEIN 5.1 g/dL (6.3-8.3)
--- NOTE | 2017-01-13 07:37 | Diag Imaging Result Doc PS360 ---
EXAM: CHEST-PORTABLE HISTORY: respiratory failure TECHNIQUE: AP portable at 0500 COMMENT: There is an endotracheal tube with its tip at the thoracic inlet and an NG tube which passes below the diaphragm. There is a right-sided PICC line. There is alveolar and interstitial pulmonary edema. There is a pleural effusion on the left if not on the right. Compared to the previous study of 01/12/2017 there has been no appreciable change. IMPRESSION: Pulmonary edema Electronically signed by Shai Houston 01/13/2017 7:35 AM
[2017-01-13] MEDS: MUCOMYST 20% INH SCH (07:40)
--- NOTE | 2017-01-13 08:46 | PROGRESS NOTE ---
DATE: 01/13/2017 VITAL SIGNS: Temperature 99 degrees, heart rate 88, respirations 14 and blood pressure 85/43. O2 saturation 93% on 75% via vent. LABORATORY: Sodium 135, potassium 5.4, BUN 119, creatinine 7.0. Blood sugar 118. Calcium 8.5, total protein 5.1, albumin 2.0. X-RAY: Chest x-ray is unchanged with persistent pulmonary edema. PLAN: With patient's continual deterioration and terminal status, discussion is made again with the family. Decision is made to discontinue phenylephrine, Cardizem, and discontinue ventilator. He will be placed on a non-rebreather mask with 100% FiO2. He is made a DNR level 1. Comfort measures only will be given. cc: Juan Castañeda MD
[2017-01-13] MEDS: LASIX IV SCH (10:46)
[2017-01-13 16:06] VITALS: BP 53/29
--- NOTE | 2017-01-13 20:28 | DISCHARGE SUMMARY ---
ADMISSION DATE: 01/01/2017 DISCHARGE DATE: 01/13/2017 HOSPITAL SUMMARY FINAL DIAGNOSES: 1. Acute respiratory failure. 2. Pulmonary edema. 3. Acute renal failure and chronic kidney disease stage 3. 4. End-stage chronic obstructive pulmonary disease. 5. Patient on 01/13/2017 at 17:05 and was pronounced at 17:16. HISTORY: This is one of several fairly recent [facility] admissions for this 81-year-old black man with end-stage COPD and congestive heart failure who presented to the emergency room with progressive shortness of breath over 3 days. He was found to have hypercapnia and hypoxia. He was given Lasix and placed on BiPAP. Dr. Cunha and Dr. Hogue were consulted during the hospitalization. INITIAL LABORATORY: Hemoglobin 7.2, hematocrit 25.2, white blood count 9800 with 73% neutrophils. Chemistries on 01/12/2017 reveals sodium 138, potassium 4.7, BUN 120, creatinine 6.2, calcium 8.5. HOSPITAL COURSE: He required ventilator assistance for acute respiratory failure. He stayed on the ventilator for a few days and then was placed on BiPAP and seemed to do fairly well until progressive pulmonary edema and hypoxia recurred. Attempts were made to wean him from the ventilator, but due to progressive renal failure and edema despite diuretics hypercapnia increased. He developed atrial fibrillation with rapid ventricular response on 01/11/2017 and responded to intravenous Cardizem with conversion to sinus rhythm an a few PVCs. Blood pressure was maintained with phenylephrine. He became progressively less responsive over the past few days. He had a low-grade fever of 99, but no significant sign of infection. He required 2 units of packed red blood cells transfusion early in the hospitalization. Last CBC on 01/10/2017 revealed white blood count 16,800, hemoglobin 9.2, hematocrit 31.5. Renal function continued to deteriorate despite supportive care. Discussion was made with the family with his hypotension and health issues that dialysis was not appropriate. After discussion with the family yesterday and today the ventilator was discontinued and he was placed on a mask with 100% FiO2. He slowly deteriorated through the day and progressed asystole at 17:05 this p.m. He is felt inappropriate for organ donation and this was not discussed with the family. cc: Juan Castañeda MD
== END 2017-01-13 17:05 | disposition expired ==
LOC: ED 07:14 → ICU 10:56
PROVIDERS: ADMIT Family Medicine; ATTEND Family Medicine